=== PATIENT | male | born 1975 | race African-American/Black ===

== ENCOUNTER → 2019-05-30 10:59 | Outpatient (CLI) | payer OTHER, SELFPAY ==
--- NOTE | ~2019-05-30 | XR_ITS ---
XR chest 2V 05/30/2019 11:10 Indication: Nicotine dependence. Procedure: PA and lateral views of the chest Comparison: No prior studies for comparison. Findings: There is a masslike density in the left upper thorax. Heart size normal. Right lung clear. No pleural effusion, edema or pneumothorax. Impression: 1: Masslike density left upper thorax, suspicious for malignancy. Recommend correlation with CT chest . Reviewed, dictated and finalized at location A. ER MECHANIC Impression: 1: Masslike density left upper thorax, suspicious for malignancy. Recommend cor relation with CT chest.
== END ==
PROVIDERS: PCP Family Medicine; Visit Provider Family Medicine
DX: F17.200 Nicotine dependence, unspecified, uncomplicated (principal); R91.8 Other nonspecific abnormal finding of lung field
CPT/HCPCS: 71046

== ENCOUNTER 2019-06-30 08:57 | Outpatient (CLI) | payer OTHER, SELFPAY ==
[2019-06-26 14:09] VITALS: BMI 28.0
[2019-06-30] VITALS (11 sets, daily range): BP systolic 113–135; BP diastolic 66–97; PULSE 59–78; RESP 16–20; TEMP 36.6; O2SAT 97–100
--- NOTE | ~2019-06-30 | XR_ITS ---
EXAMINATION: XR chest 1V portable DATE: 06/30/2019 13:14 INDICATION: Left lung nodule status post percutaneous biopsy. TECHNIQUE: A single frontal view of the chest was obtained. COMPARISON: Chest single view at 11:59 AM FINDINGS: There is a nodule in left lung upper lobe. Left hilar lymphadenopathy is noted. No pleural effusion or pneumothorax. The heart size is normal. IMPRESSION: 1. Nodule in left lung upper lobe suspicious for primary bronchogenic carcinoma. 2. Left hilar lymphadenopathy suspicious for metastatic disease. Reviewed, dictated and finalized at location A. PALLIATIVE IMPRESSION: 1. Nodule in left lung upper lobe suspicious for primary bronchogenic carcinoma . 2. Left hilar lymphadenopathy suspicious for metastatic disease.
--- NOTE | ~2019-06-30 | CT_ITS ---
EXAMINATION: CT biopsy lung DATE: 06/30/2019 12:16 INDICATION: Left lung nodule. TECHNIQUE: The procedure including the risks, benefits, and alternatives and possibility of chest tub e placement were discussed with the patient. Risks discussed included infection, approximately 1/20 r isk of symptomatic hemorrhage beyond mild hemoptysis, approximately 1/3 risk of pneumothorax, approxi mately 1/10 risk of pneumothorax severe enough to warrant chest tube placement, and rarely . The patient understood the risks and agreed to proceed. The patient was placed supine with the left side elevated. The skin overlying the left lung was prepped and draped in sterile fashion. Anesthetic w as administered with 1% lidocaine subcutaneously. A 19 gauge outer needle was advanced under CT guid ance to the lesion of interest. A 20 gauge core biopsy needle was then used to obtain 3 core biopsy s pecimens. The needle was removed and the entry site was cleaned and dressed. The mA was adjusted acco rding to patient size. Iterative reconstruction technique was employed. The dose-length product was 1 52.82 mGy-cm. There were no immediate complications. FINDINGS: CT images demonstrate the outer needle tip adjacent to a 2.2 cm cavitary nodule in left warren g upper lobe. Left hilar lymphadenopathy is noted. IMPRESSION: 1. CT-guided core needle biopsy of a cavitary nodule in left lung upper lobe. 2. Left hilar lymphadenopathy. Reviewed, dictated and finalized at location A. NARY SEAMAN
--- NOTE | ~2019-06-30 | XR_ITS ---
EXAMINATION: XR chest 1V portable DATE: 06/30/2019 14:59 INDICATION: Left lung upper lobe nodule status post percutaneous biopsy. TECHNIQUE: A single frontal view of the chest was obtained. COMPARISON: Chest single view at 1:04 PM FINDINGS: There is a nodule in left lung upper lobe. There is left hilar lymphadenopathy. No pleural effusion or pneumothorax. The heart size is normal. IMPRESSION: 1. Nodule in left lung upper lobe suspicious for primary bronchogenic carcinoma. 2. Left hilar lymphadenopathy suspicious for metastatic disease. Reviewed, dictated and finalized at location A. ESSOR OF PUBLIC ADMINISTRATION IMPRESSION: 1. Nodule in left lung upper lobe suspicious for primary bronchogenic carcinoma . 2. Left hilar lymphadenopathy suspicious for metastatic disease.
--- NOTE | ~2019-06-30 | XR_ITS ---
EXAMINATION: XR chest 1V DATE: 06/30/2019 12:02 INDICATION: Left lung upper lobe nodule status post percutaneous biopsy. TECHNIQUE: A single frontal view of the chest was obtained. COMPARISON: Chest 2 views 05/30/2019 FINDINGS: There is a nodule in left lung upper lobe. There is left hilar lymphadenopathy. No pleural effusion or pneumothorax. The heart size is normal. IMPRESSION: 1. Nodule in left lung upper lobe suspicious for primary bronchogenic carcinoma. 2. Left hilar lymphadenopathy suspicious for metastatic disease. Reviewed, dictated and finalized at location A. GER OPERATOR HELPER IMPRESSION: 1. Nodule in left lung upper lobe suspicious for primary bronchogenic carcinoma . 2. Left hilar lymphadenopathy suspicious for metastatic disease.
[2019-06-30 10:47] LABS: Mean Platelet Volume 11.5 fl (7.4-10.4); Platelet Count Result 261 k/mm3 (150-375)
--- NOTE | 2019-06-30 13:36 | SUR.PHASEII ---
1308 PORTABLE CHEST XRAY TAKEN.
== END 2019-06-30 08:58 | disposition home or self-care (01) ==
PROVIDERS: PCP Family Medicine; Visit Provider Family Medicine
DX: R91.8 Other nonspecific abnormal finding of lung field (principal); K21.9 Gastro-esophageal reflux disease without esophagitis; G43.909 Migraine, unspecified, not intractable, without status migrainosus; Z79.899 Other long term (current) drug therapy; Z82.62 Family history of osteoporosis
CPT/HCPCS: 32405; 36415; 71045; 77012; 85049; 85610; 88305

== ENCOUNTER 2019-12-18 13:54 | Outpatient (CLI) | payer OTHER, SELFPAY ==
--- NOTE | ~2019-12-18 | MR_ITS ---
EXAMINATION: MRA brain wo con EXAM DATE: 12/18/2019 14:58 INDICATION: Diplopia. TECHNIQUE: 3-D [id number] MRA of the intracranial arteries was performed without contrast. There is no prior study for comparison. FINDINGS: There is normal flow related signal seen within the vertebral, basilar and internal carotid arteries. There is no proximal stenosis. There are no aneurysms identified. Both A1 and P1 segments are pat ent. Flow in the cerebral arteries is symmetric. IMPRESSION: Normal MRA brain exam. Reviewed, dictated and finalized at location A. IMPRESSION: Normal MRA brain exam.
== END 2019-12-18 13:55 | disposition home or self-care (01) ==
PROVIDERS: PCP Family Medicine; Visit Provider Family Medicine
DX: H53.2 Diplopia (principal)
CPT/HCPCS: 70544

== ENCOUNTER 2025-05-11 15:34 | Outpatient (CLI) | payer OTHER, SELFPAY ==
--- NOTE | ~2025-05-11 | XR_ITS ---
XR thoracic spine 3V Indication: Thoracic spine pain Comparison: None Findings: The vertebral heights are intact. No fracture or subluxation. The disc heights are intact. Soft tissues unremarkable Impression: No acute abnormality. Reviewed, dictated and finalized at location P. TRANSFER CLERK Impression: No acute abnormality.
--- OUTSIDE RECORDS SUMMARY | 2025-05-11 17:54 | XMS_ITS | Encounter Summary ---
Author Organization [facility] Address [address] [place] [id number] Phone Care Team Providers Care Capital Campaign Fundraiser Name Role Phone Will Wei APRN, CNP Primary Care Pr ovider Shanti Mittal MD Unavailable [phone] Reason for Visit * Reason Comments Medication Refill Encounter Details Date Type Department Care Team (Late st Contact Info) Description 03/17/2023 Refill [facility] - [facility] - [place] [address] [place] [id number] Will Wei APRN, CONSTRUCTION PROJECT MANAGER [address] [address] Medication Refill Social History Tobacco Use Types Packs/Day Years Used Date Smoking Tobacco: Every Day Cigarettes 0.5 39.3 Started: 01/17/1986 Smokeless Tobacco: Never Alcohol Use Standard Drinks/Week Comments No 0 (1 standard drink = 0.6 oz pur e alcohol) PHQ-2 Answer Date Recorded PHQ-2 Score 8 01/23/2019 Sex and Gender Information Value Date Recorded Sex Assigned at Not on file Legal Sex Male 10:59 PM CDT Gender Identity Not on file Sexual Orientation Not on file documented as of this encounter Miscellaneous Notes * Telephone Encounter - Mary Mcintyre RN - 03/19/2023 10:11 AM CDT Last Rx 10/06/22 - no fill hx on PDMP Medication failed the protocol, provider to review and approve the medication order if appropriate. Requested Prescriptions Pending Prescriptions Disp Refills ALPRAZolam (XANAX) 0.5 MG Tablet [Pharmacy Med Name: ALPRAZolam 0.5 MG Oral Tablet] 30 Tablet 0 Sig: TAKE 1 TABLET BY MOUTH THREE TIMES DAILY NEEDED FOR ANXIETY Not Delegated - Benzodiazepines Protocol Failed - 03/17/2023 10:44 AM Failed - This refill cannot be delegated Passed - Visit with relevant provider in past 12 months or upcoming 90 days Recent Visits Date Type Provider Dept 11/13/22 Office Visit Will Wei APRN, CNP [facility] 10/06/22 Office Visit Will Wei APRN, [facility] Showing recent visits within past 365 days and meeting all other requirements Future Appointments Date Type Provider Dept 04/09/23 Appointment Will Wei APRN, [facility] Showing future appointments within next 90 days and meeting all other requirements documented in this encounter Plan of Treatment Not on file documented as of this encounter Visit Diagnoses Diagnosis Depressive disorder Depressive disorder, not elsewhere classified documented in this encounter Additional Health Concerns Assessment Noted Time PHQ-9 Depression Total Score: 8 01/18/20 19 1:00 PM CDT documented as of this encounter Care Teams Capital Campaign Fundraiser Relationship Specialty Start Date End Date Will Wei APRN, [facility] [facility] [address] [place] [address] PCP - General Advanced Practice Nurse 10/06/22 Shanti Mittal MD [address] [facility] [address] [place] [address] Consulting Physician Urology 10/03/22 documented as of this encounter
--- OUTSIDE RECORDS SUMMARY | 2025-05-11 17:54 | XMS_ITS | Clinical Summary ---
Author Organization [facility] Address [address] [place] [address] Care Team Providers Care [employer] Professor Name Role Phone Cary Meng Unavailable Unavailable Abdulaziz Wooten MD Primary Care Provider [phone] Allergies Active Allergy Reactions Criticality Noted Date Comments Propoxyphene-Acetam inophen Anaphylaxis High 03/23/2020 Sulfa (Sulfonamide Antibiotics) Other (See comments) Low Skin irritation - like a burn Sulfamethoxazole-Tr imethoprim Rash Medium 12/26/2015 Medications phenazopyridin e (PYRIDIUM) 100 mg tabletIndicati ons:Dysuria Take 1 tablet (100 mg total) by mouth 3 (three) times a day as needed for urinary pain 20 tablet 0 Active Additional Information Patient not taking.Reported on 11/25/2024 oxybutynin (DITROPAN) 5 mg tabletIndicati ons:Urinary Urgency Take 1 tablet (5 mg total) by mouth 3 (three) times a day as needed (urinary urgency) 30 tablet 0 Active Additional Information Patient not taking.Reported on 11/25/2024 tamsulosin (FLOMAX) 0.4 mg extended release capsuleIndicat ions:Urolithia sis Take 1 capsule (0.4 mg total) by mouth daily for 21 days 21 capsule 0 Active Additional Information Patient not taking.Reported on 11/25/2024 HYDROcodone-ac etaminophen (NORCO) 5-325 mg per tabletIndicati ons:Pain Take 1 tablet by mouth every 6 (six) hours as needed for pain 10 tablet 0 Active Additional Information Patient not taking.Reported on 11/25/2024 ibuprofen (ADVIL,MOTRIN) 800 mg tablet Take 1 tablet (800 mg total) by mouth 3 (three) times a day 21 tablet 1 Active Additional Information Patient not taking.Reported on 11/25/2024 naloxone (NARCAN) 4 mg/actuation spray,non-aero jose armando Administer 1 spray into affected nostril(s) as needed for opioid reversal Call 911. Administer a single spray in one nostril. Repeat every 3 minutes as needed if no or minimal response. Collaborating physician Barbara Landa MD 2 each 1 1 Active Additional Information Patient not taking.Reported on 11/25/2024 chlorhexidine (PERIDEX) 0.12 % solution Swish 15 mL in mouth for 30 seconds then spit out twice a day after brushing teeth, 473 mL 1 Active Additional Information Patient not taking.Reported on 11/25/2024 citalopram (CeleXA) 20 mg tabletIndicati ons:Anxiety with Depression Take 1 tablet (20 mg total) by mouth daily 90 tablet 3 5 Active Active Problems Problem Noted Date Diagnosed Date Anxiety and depression 11/25/2024 Assessment & Plan (11/27/2024 11:41 AM CDT): Patient has a history of anxiety and depression. Was previously controlled on citalopram 20 mg. Patient stopped taking. Today PHQ-9 was 13 and scotty 7 was 13. We we will restart again. H/O multiple pulmonary nodules 11/25/2024 Assessment & Plan (11/27/2024 11:41 AM CDT): Previous CT PE showed 9 mm noncalcified nodule posterior left upper lobe. 4 mm ground-glass nodule medial aspect left upper lobe. 4 mm ground-glass subpleural nodule anterior aspect right middle lobe. 3 mm nodule right lower lobe. It is recommended a non-contrast chest CT at 3 to 6 months was to be repeated. We will repeat Opioid abuse 03/07/2021 Renal calculus, left 03/10/2020 Right renal stone 01/28/2020 Overview (01/28/2020): Added automatically from request for surgery [id number] Gastroesophageal reflux disease without esophagi tis 01/20/2020 Nausea and vomiting 01/20/2020 Renal calculus, right 01/19/2020 Overview (01/19/2020): Added automatically from request for surgery [id number] Chronic migraine without aura 07/13/2016 Overview (09/01/2016): Chronic migraine without aura Aneurysm of internal carotid artery 07/13/2016 Overview (09/01/2016): Aneurysm of internal carotid artery Migraine without aura and wi thout status migrainosus, not intractable 07/13/2016 Overview (02/24/2021): Overview: Chronic migraine without aura GERD (gastroesophageal reflux disease) Tobacco use disorder Resolved Problems Problem Noted Date Diagnosed Date Resolved Date Acute pyelonephritis 01/21/2020 025 Encounters Date Type Department Care Team Description 05/08/2025 [facility] Enrollment [facility] [address] [place], [place] [phone] Cary Meng 04/30/2025 Documentation [facility] [address] [place], [place] [phone] Cary Meng 04/28/2025 12:27 PM EHS MANAGER - 04/28/2025 5:01 PM EHS MANAGER Emergency [facility] Emergency Department [address] [place] [address] Barbara Landa MD Polysubstance abuse (Primary Dx) Discharge Disposition: Discharge to home or self care 04/28/2025 Documentation [facility] [address] [place], [place] [phone] Alberto David RRT from Last 3 Months Immunizations Immunization Administration Dates Next Due Pneumococcal Polysaccharide PPV23 01/17/2019 Td, Unspecified 12/26/2015 Tdap 12/26/2015 Surgical History Surgery Date Site/Laterality Comments CYSTOSCOPY W/ LASER LITHOTRIPSY LUMBAR FUSION URETERAL STENT PLACEMENT Medical History Medical History Date Comments Nephrolithiasis GERD (gastroesophageal reflux disease) Migraine Meningioma (HCC) Depression Arthritis Family History Medical History Relation Name Comments Diabetes Father Diabetes mellit us; Hypertension Father Hypertension; Cancer Mother Diabetes Mother Diabetes mellit us; Hypertension Mother Hypertension; Lung cancer Mother Cancer, lung; Diabetes Other 1 Diabetes mellit us; Hypertension Other 2 Hypertension; Relation Name Status Comments Father Alive Mother Other 1 Other 2 Social History Tobacco Use Types Packs/Day Years Used Date Smoking Tobacco: Every Day Cigarettes Smokeless Tobacco: Never Tobacco Cessation:Ready to Q uit: Not Asked; Counseling Given: Not Answered Alcohol Use Standard Drinks/Week Comments No 0 (1 standard drink = 0.6 oz pur e alcohol) AUDIT-C Answer Date Recorded Q1: How often do you have a drink containing alcohol? Never 11/25/2024 Q2: How many drinks containi ng alcohol do you have on a typical day when you are drinking? Patient does not drink Q3: How often do you have si x or more drinks on one occasion? Never 11/25/2024 PHQ-2 Answer Date Recorded PHQ-2 Total Score (If total score is 3 or more points, staff should administer the PHQ-9) 4 11/25/2024 PHQ-9 Answer Date Recorded PHQ-9 Total Score 13 11/25/2024 Personal Safety Answer Date Recorded Have you ever been in or are you currently in a harmful physical or emotional relationship or is someone making you feel afraid or unsafe? Denies 04/28/2025 Sex and Gender Information Value Date Recorded Sex Assigned at Not on file Legal Sex Male 4:22 AM EHS MANAGER Gender Identity Not on file Sexual Orientation Not on file Last Filed Vital Signs Vital Sign Reading Time Taken Comments Blood Pressure 146/100 04/28/2025 4:59 PM EHS MANAGER Pulse 69 04/28/2025 4:59 PM EHS MANAGER Temperature 37.1 C (98.7 F) 04/28/2025 12:40 PM EHS MANAGER Respiratory Rate 14 04/28/2025 4:59 PM EHS MANAGER Oxygen Saturation 96% 04/28/2025 4:59 PM EHS MANAGER Inhaled Oxygen Concentration - - Weight 72.6 kg (160 lb) 04/28/2025 12:40 PM EHS MANAGER Height 175.3 cm (5' 9) 04/28/2025 12:40 PM EHS MANAGER Body Mass Index 23.63 04/28/2025 12:40 PM EHS MANAGER Plan of Treatment Health Maintenance Due Date Last Done Comments Colon Cancer Screening-Colonoscopy 1974 Hepatitis C Screening 1974 Prostate Cancer Screening-PSA 1974 Hepatitis B Screening 02/21/1992 Regular Well Visit/Exam 18-64 02/21/1992 Pneumococcal vaccine <65 (2 of 2 - PCV) 01/18/2020 0 01/17/2019 Zoster Vaccine (1 of 2) 02/21/2024 Influenza Vaccine (#1) 2025 Depression Screening 11/25/2025 11/25/2024, 11/26/19 25 DTaP/Tdap/Td Vaccine (2 - Td or Tdap) 12/25/2025, 12/26/2015 Medical Devices Explanted Type Area Tar Pot Man Device Identifier Shelf Expiration Date Model / Serial / Lot Bard Inlay [place] 7fr X 26cm Implanted:Qty: 1 on 01/21/2020 by Hector Martinez MD at [facility] Explanted:Qty: 1 on 03/26/2020 by Raj Hernandez DO at [facility] Right: Ureter [employer] [id number] 08/28/2023 [id number] / / [id number] Ninjathat Jaison [id number] 6fr 26cm Large Inner Lumen Low Profile Bladder Donny Taper Tip Latex Free - [id number] Implanted:Qty: 1 on 03/26/2020 by Raj Hernandez DO at [facility] Explanted:Qty: 1 on 04/14/2020 by Raj Hernandez DO Right: Ureter [employer] Jaison [id number] 11/03/2021 [id number] / / [id number] Procedures Procedure Name Priority Date/Time Associated Diagnosis Comments CT KUB STONE WO CONTRAST ED Urgent/IP Urgent 04/28/2025 4:02 PM EHS MANAGER EGFR STAT 04/28/2025 3:17 PM EHS MANAGER DIFFERENTIAL AUTO STAT 04/28/2025 3:1 7 PM EHS MANAGER ETHANOL STAT 04/28/2025 3:17 PM EHS MANAGER COMPREHENSIVE METABOLIC PANEL STAT 04/28/2025 3:17 PM EHS MANAGER CBC WITH AUTO DIFFERENTIAL STAT 04/28/2025 3:17 PM EHS MANAGER DRUGS OF ABUSE SCREEN, URINE WITHOUT CONFIRMATION STAT 04/28/2025 1:08 PM EHS MANAGER URINALYSIS AND REFLEX TO MICROSCOPIC AND CULTURE STAT 04/28/2025 1:08 PM EHS MANAGER from Last 3 Months Results * CT KUB Stone WO Contrast (04/28/2025 4:02 PM EHS MANAGER) Anatomical Region Laterality Modality Abdomen N/A Computed Tomogra phy 04/28/2025 4:30 PM EHS MANAGER Impressions 04/28/2025 4:30 PM EHS MANAGER 1. Kidney stones are seen with no evidence of ureteral stone or hydronephrosis. No hydroureter. No bladder ossification. 2. No acute inflammatory change the abdomen or pelvis. No bowel obstruction or inflammatory change of bowel. 3. Again seen is rotation abnormality of bowel with small bowel seen on the right and colon seen on the left. Prominent stool seen of the colon without focal inflammatory change or evidence of obstruction. 4. Rounded cystic fluid collection is seen anterolateral to the upper pole of left kidney as was previously seen. This measures up water density. Mesenteric duplication cyst or lymphangioma favored. This was seen to be separate from the kidney on prior exams. Electronically signed by: Denis Dey M.D. Narrative 04/28/2025 4:30 PM EHS MANAGER EXAMINATION: CT KUB STONE WO CONTRAST HISTORY: Abdominal/flank pain, stone suspected. TECHNIQUE: CT abdomen and pelvis with contrast . Reconstructed coronal and sagittal MPR images reviewed. All images stored on PACS. Automated exposure control was used as a dose optimization technique for this examination. COMPARISON: Prior CT 08/29/2024 and 02/28/2022 FINDINGS: LOWER CHEST: The lung bases are clear. The heart is normal in size without pericardial effusion. Please see prior CT from 08/29/2024 as pulmonary nodules were noted in the chest for which follow-up CT was recommended in 3-6 months from that time. This could be obtained routinely. LIVER: The liver demonstrates a normal appearance given limitations without IV contrast. GALLBLADDER: No stones or inflammatory change. BILIARY: No intrahepatic or extrahepatic ductal dilatation SPLEEN: Normal length. No focal lesions. PANCREAS: No identified cystic or solid masses. No significant calcifications. No adjacent inflammation or peripancreatic fluid collections. Pancreatic duct is not dilated. ADRENALS: No discrete nodules. KIDNEYS/URINARY TRACT: The right kidney demonstrates nonobstructing stones as was previously seen. 3 mm stone in the mid to upper pole and 7 mm stone in the lower pole. There is no hydronephrosis or hydroureter. Small focus of hyperdensity favoring hemorrhagic cyst or other benign etiology with Hounsfield units of 90 posterior aspect interpolar region right kidney. The left kidney demonstrates a 2 mm stone of the lower pole. There is no left-sided hydronephrosis or hydroureter. Bladder appears normal There is a rounded fluid collection anterior to the lateral margin of the left kidney superiorly. This measures fluid density. This measures 5 cm. This was seen to be separate from the kidney and an older exam from October 19, 2019 when this measured 4 cm. This may reflect benign etiology such as lymphangioma. Possible mesenteric complication cyst. GI: There is rotation anomaly of bowel as was previously demonstrated. Small bowel loops are seen in the right abdomen and the colon is seen in the left abdomen. There is prominent stool seen throughout the colon with no evidence of obstruction or acute inflammatory change. Appendix is identified with no inflammatory change. The stomach and loops of small bowel are otherwise unremarkable with no obstruction or acute inflammatory change. PERITONEUM: No free intraperitoneal air or ascites. RETROPERITONEUM:No mass or adenopathy REPRODUCTIVE:Mild prominence of the prostate. VASCULATURE: No abdominal aortic aneurysm. MUSCULOSKELETAL: There is artifact as result of posterior fusion of L3, L4 and L5 with posterior rods and pedicle screws. Moderate spondylosis otherwise. No significant change in the interval. OTHER: No other acute findings. Procedure Note Denis Dey MD - 04/28/2025 EXAMINATION: CT KUB STONE WO CONTRAST HISTORY: Abdominal/flank pain, stone suspected. TECHNIQUE: CT abdomen and pelvis with contrast . Reconstructed coronal and sagittal MPR images reviewed. All images stored on PACS. Automated exposure control was used as a dose optimization technique for this examination. COMPARISON: Prior CT 08/29/2024 and 02/28/2022 FINDINGS: LOWER CHEST: The lung bases are clear. The heart is normal in size without pericardial effusion. Please see prior CT from 08/29/2024 as pulmonary nodules were noted in the chest for which follow-up CT was recommended in 3-6 months from that time. This could be obtained routinely. LIVER: The liver demonstrates a normal appearance given limitations without IV contrast. GALLBLADDER: No stones or inflammatory change. BILIARY: No intrahepatic or extrahepatic ductal dilatation SPLEEN: Normal length. No focal lesions. PANCREAS: No identified cystic or solid masses. No significant calcifications. No adjacent inflammation or peripancreatic fluid collections. Pancreatic duct is not dilated. ADRENALS: No discrete nodules. KIDNEYS/URINARY TRACT: The right kidney demonstrates nonobstructing stones as was previously seen. 3 mm stone in the mid to upper pole and 7 mm stone in the lower pole. There is no hydronephrosis or hydroureter. Small focus of hyperdensity favoring hemorrhagic cyst or other benign etiology with Hounsfield units of 90 posterior aspect interpolar region right kidney. The left kidney demonstrates a 2 mm stone of the lower pole. There is no left-sided hydronephrosis or hydroureter. Bladder appears normal There is a rounded fluid collection anterior to the lateral margin of the left kidney superiorly. This measures fluid density. This measures 5 cm. This was seen to be separate from the kidney and an older exam from October 19, 2019 when this measured 4 cm. This may reflect benign etiology such as lymphangioma. Possible mesenteric complication cyst. GI: There is rotation anomaly of bowel as was previously demonstrated. Small bowel loops are seen in the right abdomen and the colon is seen in the left abdomen. There is prominent stool seen throughout the colon with no evidence of obstruction or acute inflammatory change. Appendix is identified with no inflammatory change. The stomach and loops of small bowel are otherwise unremarkable with no obstruction or acute inflammatory change. PERITONEUM: No free intraperitoneal air or ascites. RETROPERITONEUM:No mass or adenopathy REPRODUCTIVE:Mild prominence of the prostate. VASCULATURE: No abdominal aortic aneurysm. MUSCULOSKELETAL: There is artifact as result of posterior fusion of L3, L4 and L5 with posterior rods and pedicle screws. Moderate spondylosis otherwise. No significant change in the interval. OTHER: No other acute findings. IMPRESSION: 1. Kidney stones are seen with no evidence of ureteral stone or hydronephrosis. No hydroureter. No bladder ossification. 2. No acute inflammatory change the abdomen or pelvis. No bowel obstruction or inflammatory change of bowel. 3. Again seen is rotation abnormality of bowel with small bowel seen on the right and colon seen on the left. Prominent stool seen of the colon without focal inflammatory change or evidence of obstruction. 4. Rounded cystic fluid collection is seen anterolateral to the upper pole of left kidney as was previously seen. This measures up water density. Mesenteric duplication cyst or lymphangioma favored. This was seen to be separate from the kidney on prior exams. Electronically signed by: Denis Dey M.D. Barbara Landa MD IMG CT PROCEDURES F inal Result * eGFR (04/28/2025 3:17 PM EHS MANAGER) eGFR 77 >=60 mL/min/1. 73 m2 Comment: Interpretive Data Reference Interval Normal >/= 90 mL/min/1.73m2 Mildly decreased* 60 - 89 mL/min/1.73m2 Mildly to moderately decreased 45 - 59 mL/min/1.73m2 Moderately to severely decreased 30 - 44 mL/min/1.73m2 Severely decreased 15 - 29 mL/min/1.73m2 Kidney Failure < 15 mL/min/1.73m2 *Relative to young adult level Estimated glomerular filtration rate is determined by the 2020 CKD-EPI equation recommended by the National Kidney Foundation (A Unifying Approach to GFR Estimation: Recommendations of the NKF-ASK Task Force on Reassessing the Inclusion of Race in Diagnosing Kidney Disease, JASN 202). The CKD-EPI equation should not be used for patients with unstable renal function and has not been validated in children and those over 70. Current interpretive data was last reviewed 2021. Blood 04/28/2025 3:17 PM EHS MANAGER 04/28/2025 3:27 PM EHS MANAGER Barbara Landa MD LAB BLOOD ORDERABLE S Final Result [facility]) 1 [facility] Department of [employer] [place] [address] * Differential, auto (04/28/2025 3:17 PM EHS MANAGER) Neutrophil abs 6.25 1.50 - 6.50 K/cumm Imm gran abs 0.02 0.00 - 0.10 K/cumm [facility] ([place]) Lymphocyte abs 2.60 0.80 - 3.30 K/cumm [facility] ([place]) Monocyte abs 0.62 0.20 - 0.80 K/cumm [facility] ([place]) Eosinophil abs 0.25 0.00 - 0.50 K/cumm [facility] ([place]) Basophil abs 0.04 0.00 - 0.10 K/cumm [facility] ([place]) Neutrophil pct 63.9 % [facility] ([place]) Comment: Interpretive Data Percent cell count reference ranges are not reported, since discordance with absolute values may lead to misinterpretation of CBC data. Current Interpretive Data was last revised on 2017. Imm gran pct 0.2 % [facility] ([place]) Comment: Interpretive Data Percent cell count reference ranges are not reported, since discordance with absolute values may lead to misinterpretation of CBC data. Current Interpretive Data was last revised on 2017. Lymphocyte pct 26.6 % [facility] ([place]) Comment: Interpretive Data Percent cell count reference ranges are not reported, since discordance with absolute values may lead to misinterpretation of CBC data. Current Interpretive Data was last revised on 2017. Monocyte pct 6.3 % [facility] ([place] Comment: Interpretive Data Percent cell count reference ranges are not reported, since discordance with absolute values may lead to misinterpretation of CBC data. Current Interpretive Data was last revised on 2017. Eosinophil pct 2.6 % [facility] ([place] Comment: Interpretive Data Percent cell count reference ranges are not reported, since discordance with absolute values may lead to misinterpretation of CBC data. Current Interpretive Data was last revised on 2017. Basophil pct 0.4 % [facility] ([place]) Comment: Interpretive Data Percent cell count reference ranges are not reported, since discordance with absolute values may lead to misinterpretation of CBC data. Current Interpretive Data was last revised on 2017. Blood 04/28/2025 3:17 PM EHS MANAGER 04/28/2025 3:27 PM EHS MANAGER us Barbara Landa MD LAB BLOOD ORDERABLE S Final Result Performing Organization Address City/[facility]/ZIP Co de Phone Number [facility] ([place]) 1 [facility] [employer] [place] [address] * CBC with auto differential (04/28/2025 3:17 PM EHS MANAGER) WBC 9.78 3.80 - 9.90 K/cumm Hgb 14.1 13.0 - 17.5 g/dL [facility] ([place]) Hct 42.7 38.9 - 50.3 % [facility] ([place]) Plt 289 150 - 400 K/cumm [facility] ([place]) MPV 9.9 9.1 - 12.3 fL [facility] ([place]) RBC 4.68 4.30 - 5.80 M/cumm [facility] ([place]) MCV 91.2 81.3 - 96.4 fL [facility] ([place]) MCH 30.1 27.1 - 33.3 pg [facility] ([place]) MCHC 33.0 32.3 - 35.7 g/dL [facility]) RDW CV 13.0 11.1 - 14.9 % [facility] RDW SD 43.0 35.7 - 48.1 fL [facility] ([place]) NRBC abs 0.00 0.00 - 0.01 K/cumm [facility] ([place]) Blood 04/28/2025 3:17 PM EHS MANAGER 04/28/2025 3:27 PM EHS MANAGER us Barbara Landa MD LAB BLOOD ORDERABLE S Final Result [facility] 1 [facility] [place] [address] * Ethanol (04/28/2025 3:17 PM EHS MANAGER) Ethanol <10 <=10 mg/dL Comment: Interpretive Data Legal limit of intoxication > or = 80 mg/dL Levels > or = 400 mg/dL are potentially TOXIC. Current interpretive data was last revised on 2018. Blood 04/28/2025 3:17 PM EHS MANAGER 04/28/2025 3:27 PM EHS MANAGER us Barbara Landa MD LAB BLOOD ORDERABLE S Final Result [facility] ([place]) 1 [facility] Department [place] [address] * (ABNORMAL) Comprehensive metabolic panel (04/28/2025 3:17 PM EHS MANAGER) Sodium 138 135 - 145 mmol/L Potassium, pl 4.6 3.3 - 4.9 mmol/L [facility]) Chloride 105 97 - 110 mmol/L [facility]) CO2 26 22 - 32 mmol/L [facility]) Anion gap 7 2 - 15 mmol/L [facility]) BUN 11 6 - 25 mg/dL [facility]) Creatinine 1.15 0.80 - 1.30 mg/dL [facility]) Glucose 100 70 - 199 mg/dL [facility] ([place]) Comment: Interpretive Data Fasting glucose >/= 126 mg/dl is diagnostic for diabetes. Fasting is defined as no caloric intake for at least 8 hours. Fasting glucose between 100 mg/dl to 125 mg/dl is diagnostic of prediabetes. In a patient with classic symptoms of hyperglycemia or hyperglycemic crisis, a random glucose >/= 200 mg/dl is diagnostic for diabetes. In the absence of unequivocal hyperglycemia, results should be confirmed by repeat testing. The classification and Diagnosis of Diabetes Diabetes Care 202; 46: S19-S40. Current interpretive data was last revised 2022. Calcium 10.6(H) 8.5 - 10.3 mg/dL [facility] ([place]) Bilirubin, total 0.2 0.1 - 1.2 mg/dL [facility] ([place]) Protein, pl 6.7 6.5 - 8.5 g/dL [facility] ([place]) Albumin 4.1 3.5 - 5.0 g/dL [facility] ([place]) Alk phos 96 40 - 130 Units/L [facility] ([place]) ALT 20 7 - 55 Units/L [facility] ([place]) AST 25 10 - 50 Units/L [facility] ([place]) Comment:Hemolysis present. R esults may be affected. Blood 04/28/2025 3:17 PM EHS MANAGER 04/28/2025 3:27 PM EHS MANAGER us Barbara Landa MD LAB BLOOD ORDERABLE S Final Result [facility] 1 [facility] Department [place] [address] * Urinalysis reflex to microscopic and culture Urine (04/28/2025 1:08 PM EHS MANAGER) Color, ur Yellow Yellow Clarity, ur Clear Clear [facility] ([place]) Specific gravity, ur 1.016 1.003 - 1.030 [facility] ([place]) pH, urine 7.5 [facility] ([place]) Comment: Interpretive Data U rine pH is affected by diet, medications, systemic acid-base disturbances, and renal tubular function. pH may affect urinary stone formation. For example, urine pH below 6.0 may help reduce the tendency for calcium phosphate stones and pH greater than 6.0 may reduce the tendency for uric acid stone formation. Source: [facility] [employer] Current Interpretive Data was last revised on 2017 Protein, ur ql Negative Negative [facility] ([place]) Glucose, ur ql Negative Negative [facility] ([place]) Ketones, ur Negative Negative [facility] ([place]) Bilirubin, ur Negative Negative [facility] ([place]) Blood, ur Negative Negative [facility] ([place]) Urobilinogen, ur <2.0 <2.0 mg/dL [facility] ([place]) Nitrite, ur Negative Negative [facility] ([place]) Leukocyte esterase, ur Negative Negative [facility] ([place]) UA reflex comment Reflex conditions for microscopic UA and culture not met. [facility] ([place]) Urine 04/28/2025 1:08 PM EHS MANAGER 04/28/2025 2:49 PM EHS MANAGER Barbara Landa MD LAB MICROBIOLOGY - GENERAL ORDERABLES Final Result [facility] ([place]) 1 [facility] [place] [address] * (ABNORMAL) Drugs of Abuse Screen, Urine without Confirmation (04/28/2025 1:08 PM EHS MANAGER) Amphetamine, ur Screen Positive, presumptive (A) CutOff 500ng/mL Comment: Interpretive Data - Amphetamines: Samples containing greater than 500 ng/mL d-methamphetamine or other cross-reacting amphetamine compounds are reported as positive. Amphetamine immunoassays are subject to significant false positive rates due to cross-reactivity of non-amphetamine drugs. Confirmatory testing required for definitive results. Current Interpretive Data was last reviewed 2022. Barbiturates, ur Not Detected CutOff 200ng/mL ANGELA MORIN (PALMA) Comment: Interpretive Data - Barbiturates: Samples containing greater than 200 ng/mL secobarbital or other cross-reacting barbiturate compounds are reported as positive. False positive and false negative results are possible. Confirmatory testing required for definitive results. Current Interpretive Data was last reviewed 2022. Benzodiazepines, ur Not Detected CutOff 100ng/mL ANGELA MORIN (PALMA) Comment: Interpretive Data - Benzodiazepines: Samples containing greater than 100 ng/mL nordiazepam or other cross-reacting compounds are reported as positive. False positive and false negative results are possible. Confirmatory testing required for definitive results. Current Interpretive Data was last reviewed 2022. Cannabinoids, ur Screen Positive, presumptive (A) CutOff 50 ng/mL ANGELA MORIN (PALMA) Comment: Interpretive Data - Cannabinoids: Samples containing greater than 50 ng/mL delta-9 THC -COOH or other cross- reacting compounds are reported as positive. False positive and false negative results are possible. Confirmatory testing required for definitive results. Current Interpretive Data was last reviewed 2022. Cocaine, ur Not Detected CutOff 150ng/mL [facility] ([place]) Comment: Interpretive Data - Cocaine: Samples containing greater than 150 ng/mL benzoylecgonine or other cross- reacting compounds are reported as positive. False positive and false negative results are possible. Confirmatory testing required for definitive results. Current Interpretive Data was last reviewed 2022. Fentanyl, Ur Not Detected CutOff 5 ng/mL [facility] ([place]) Comment: Interpretive Data - Fentanyl: Samples containing greater than 5 ng/mL norfentanyl, fentanyl, or other cross-reacting fentanyl compounds are reported as positive. False positive and false negative results are possible. Confirmatory testing required for definitive results. Current Interpretive Data was last reviewed 2023. Methadone, ur Not Detected CutOff 300ng/mL [facility] ([place]) Comment: Interpretive Data - Methadone: Samples containing greater than 300 ng/mL d,l-methadone or other cross-reacting compounds are reported as positive. False positive and false negative results are possible. Confirmatory testing required for definitive results. Current Interpretive Data was last reviewed 2022. Opiates, ur Not Detected CutOff 300ng/mL [facility] ([place]) Comment: Interpretive Data - Opiates: Samples containing greater than 300 ng/mL morphine or other cross-reacting compounds are reported as positive. False positive and false negative results are possible. Confirmatory testing required for definitive results. Current Interpretive Data was last reviewed 2022. Oxycodone, ur NOT DETECTED CutOff 100ng/mL [facility] ([place]) Comment: Interpretive Data - Oxycodone: Samples containing greater than 100 ng/mL oxycodone or other cross-reacting compounds are reported as positive. False positive and false negative results are possible. Confirmatory testing required for definitive results. Current Interpretive Data was last reviewed 2022. Phencyclidine, ur Not Detected CutOff 25 ng/mL [facility] ([place]) Comment: Interpretive Data - Phencyclidine: Samples containing greater than 25 ng/mL phencyclidine or other cross-reacting compounds are reported as positive. False positive and false negative results are possible. Confirmatory testing required for definitive results. Current Interpretive Data was last reviewed 2022. Urine Creatinine 101 mg/dL [facility] ([place]) Comment: Interpretive Data Urine Creatinine: < 10 mg/dL is extremely dilute = or > 10 but < 20 mg/dL is dilute = or > 20 mg/dL is normal Current Interpretive Data was last revised on 2017. Urine 04/28/2025 1:08 PM EHS MANAGER 04/28/2025 1:08 PM EHS MANAGER Narrative ANGELA MORIN (PALMA) - 04/28/2025 1:25 PM EHS MANAGER Drug of Abuse screening is performed by immunoassay for medical purposes only. This is not to be used for Pain Management purposes. us Hattie Carmichael MD LAB URINE ORDERABLES Cora riley Result ANGELA MORIN (PALMA) [address] [facility] [place] [address] from Last 3 Months Insurance [facility] [place] [address] [facility] Advance Directives For more information, please contact: [phone] * Full Code (Latest Code Status on File) Date Activated Date Inactivated Comments 03/26/2020 12:45 PM 03/27/2020 6:43 PM * Full Code Date Activated Date Inactivated Comments 01/21/2020 2:45 AM 01/23/2020 9:41 PM * Full Code Date Activated Date Inactivated Comments 01/20/2020 1:37 AM 01/20/2020 6:01 AM Care Teams Africana Studies Professor Relationship Specialty Start Date End Date Abdulaziz Wooten MD [address] [place] [address] [place] [address] PCP - General Family Medicine 11/25/24 Cary Meng Academic Coordinator Addiction Medicine 03/07/21
--- OUTSIDE RECORDS SUMMARY | 2025-05-11 17:54 | XMS_ITS | Encounter Summary ---
Author Organization [facility] Address [address] [place] [address] Phone Care Team Providers Care Carrot Harvester Name Role Phone Will Wei APRN, CNP Primary Care Pr ovider Shanti Mittal MD Unavailable [phone] Reason for Visit * Reason Comments Medication Refill Encounter Details Date Type Department Care Team (Late st Contact Info) Description 01/26/2024 Refill [facility] - Family Medicine - [place] #2 [place] [id number] Will Wei APRN, PUBLIC HEALTH TRAINING ASSISTANT #[address] [address] Medication Refill Social History Tobacco Use Types [...] Telephone Encounter - Mary Mcintyre RN - 01/29/2024 7:15 AM CDT Images from the original note were not included. Will Wei APRN, PUBLIC HEALTH TRAINING ASSISTANT to [facility] 01/21/24 9:04 AM Needs OV * Telephone Encounter - Sharmila Chaudhari RN - 01/26/2024 12:54 PM CDT Pt needs OV. Per RMA 01/22/24: NO ACTIVE PHONE NUMBER IN PATIENT CHART OR ADDRESS [employer] message was sent to patient, but remains unread. documented in this encounter Plan of Treatment Not on file documented as of this encounter Visit Diagnoses Diagnosis Depressive disorder Depressive disorder, not elsewhere classified documented in this encounter Additional Health Concerns Assessment Noted Time PHQ-9 Depression Total Score: 8 01/18/20 19 1:00 PM CDT documented as of this encounter Care Teams Carrot Harvester Relationship Specialty Start Date End Date Will Wei APRN, PUBLIC HEALTH TRAINING ASSISTANT #2 [facility] [address] [place] [address] PCP - General Advanced Practice Nurse 10/06/22 Shanti Mittal MD #2 [facility] [address] [place] [address] Consulting Physician Urology 10/03/22 documented as of this encounter
--- OUTSIDE RECORDS SUMMARY | 2025-05-11 17:54 | XMS_ITS | Encounter Summary ---
Author Organization [facility] Address [address] [place] [address] Phone Care Team Providers Care Yarn Twister Name Role Phone Will Wei APRN, CNP Primary Care Pr ovider Shanti Mittal MD Unavailable [phone] Reason for Visit * Reason Comments Medication Refill Encounter Details Date Type Department Care Team (Late st Contact Info) Description 12/26/2023 Refill [facility] - Family Medicine - [place] #2 [place] [phone] Will Wei APRN, ASSISTANT CENTER DIRECTOR #[address] [address] Medication Refill Social History Tobacco Use Types [...] encounter Miscellaneous Notes * Telephone Encounter - Elisabeth Schroeder CMA - 12/26/2023 1:27 PM CDT [employer] message was sent to patient; phone number is not listed in chart. * Telephone Encounter - Mary Mcintyre RN - 12/26/2023 11:50 AM CDT Needs OV with PCP * Telephone Encounter - Mary Mcintyre RN - 12/26/2023 11:50 AM CDT Medication failed the protocol, provider to review and approve the medication order if appropriate. Requested Prescriptions Pending Prescriptions Disp Refills citalopram (CeleXA) 20 MG Tablet [Pharmacy Med Name: Citalopram Hydrobromide 20 MG Oral Tablet] 30 Tablet 0 Sig: Take 1 tablet by mouth once daily Citalopram (Celexa) (6 Month Refill Only) Protocol Failed - 12/26/2023 10:22 AM Failed - Visit with relevant provider in past 6 months or upcoming 90 days Recent Visits No visits were found meeting these conditions. Showing recent visits within past 182 days and meeting all other requirements Future Appointments No visits were found meeting these conditions. Showing future appointments within next 90 days and meeting all other requirements Failed - Has an encounter in the past 6 months with a depression, anxiety, adjustment disorder, OCD, or PTSD visit diagnosis Passed - Citalopram dose is less than or equal to 40mg / day Passed - Patient has established therapy with Citalopram for at least 6 months documented in this encounter Plan of Treatment Not on file documented as of this encounter Visit Diagnoses Diagnosis Depressive disorder Depressive disorder, not elsewhere classified documented in this encounter Additional Health Concerns Assessment Noted Time PHQ-9 Depression Total Score: 8 01/18/20 19 1:00 PM CDT documented as of this encounter Care Teams Yarn Twister Relationship Specialty Start Date End Date Will Wei APRN, ASSISTANT CENTER DIRECTOR #[address] [address] PCP - General Advanced Practice Nurse 10/06/22 Shanti Mittal MD #2 [facility] [address] [place] [address] Consulting Physician Urology 10/03/22 documented as of this encounter"
--- OUTSIDE RECORDS SUMMARY | 2025-05-11 17:54 | XMS_ITS | Encounter Summary ---
Author Organization [facility] Address [address] [place] [address] Phone Care Team Providers Care Pencil Inspector Name Role Phone Will Wei APRN, CNP Primary Care Pr ovider Shanti Mittal MD Unavailable [phone] Reason for Visit * Reason Comments Medication Refill Encounter Details Date Type Department Care Team (Late st Contact Info) Description 06/23/2023 Refill [facility] - Family Medicine - [place] #2 [place] [phone] Will Wei APRN, [employer] #[address] [address] Medication Refill Social History Tobacco Use Types [...] Telephone Encounter - Mary Mcintyre RN - 06/25/2023 9:32 AM CST Medication failed the protocol, provider to review and approve the medication order if appropriate. Requested Prescriptions Pending Prescriptions Disp Refills citalopram (CeleXA) 20 MG Tablet [Pharmacy Med Name: Citalopram Hydrobromide 20 MG Oral Tablet] 90 Tablet 0 Sig: Take 1 tablet by mouth once daily Citalopram (Celexa) (6 Month Refill Only) Protocol Failed - 06/23/2023 3:38 PM Failed - Visit with relevant provider in [...] with Citalopram for at least 6 months CTOR CHEMISTRY documented in this encounter Plan of Treatment Not on file documented as of this encounter Visit Diagnoses Diagnosis Depressive disorder Depressive disorder, not elsewhere classified documented in this encounter Additional Health Concerns Assessment Noted Time PHQ-9 Depression Total Score: 8 01/18/20 19 1:00 PM CDT documented as of this encounter Care Teams Pencil Inspector Relationship Specialty Start Date End Date Will Wei APRN, CNP #2 [facility] [address] [place] [address] PCP - General Advanced Practice Nurse 10/06/22 Shanti Mittal MD #[address] [facility] [address] [place] [address] Consulting Physician Urology 10/03/22 documented as of this encounter
--- OUTSIDE RECORDS SUMMARY | 2025-05-11 17:54 | XMS_ITS | Clinical Summary ---
Author Organization [facility] Address [address] [place] [address] Care Team Providers Care Liner Checker Name Role Phone Unavailable Primary Care Provider Unavailabl e Source Comments [facility],non-owned Affiliates and Associated Physician Practices is amultiple site organization consisting of ambulatory clinics and hospital sitesin [place], [place], [place] and [place]. This disclosure is being madepursuant to the Care Everywhere program and may not contain all information available regarding this patient. Last updated 18.[facility] Allergies Active Allergy Reactions Criticality Noted Date Comments Sulfamethoxazole W-Trimethoprim Topical High 03/02/2022 Propoxyphene N-Apap Angioedema High 03/02/2022 Sulfa Antibiotics Unknown Low 06/26/2022 Skin irritation - like a burn Medications * Be aware that medications may not be up to date on this document. Alwaysverify current medications with the patient. citalopram (CeleXA) 40 MG tablet Take 1 (one) tablet by mouth once daily 2 Active Docusate Sodium (DSS) 100 MG Take 100 mg by mouth 2 times daily 2 Active naloxone HCl (Narcan) 4 MG/0.1ML nasal spray Gr[place] 1 (one) spray into the nose as needed 2 Active phenazopyridine (Pyridium) 100 MG tablet Take 1 (one) tablet by mouth 2 times daily 10 tablet 3 Active solifenacin (Vesicare) 10 MG tablet Take 1 (one) tablet by mouth once daily 30 tablet 2 3 Active Additional Information Patient taking differently:10 mg OralEVERY MORNING, Reported on 06/29/2022 oxyCODONE-aceta minophen (Percocet) 7.5-325 MG tabletIndicatio ns:Flank pain Take 1 (one) tablet by mouth every 6 hours as needed for Pain 0 3 Active ketorolac (Toradol) 10 MG tablet Take 1 (one) tablet by mouth every 6 hours as needed for Pain 25 tablet 3 Active HYDROcodone-artie taminophen ([place]) 5-325 MG tabletIndicatio ns:Flank pain Take 1 (one) tablet by mouth every 8 hours as needed for Pain 15 tablet 3 Active Active Problems Problem Noted Date Diagnosed Date Nephrolithiasis 06/26/2022 Flank pain 06/26/2022 Ureteral stent retained 06/26/2022 Hydronephrosis with urinary obstruction due to renal calculus 02/28/2022 Resolved Problems Problem Noted Date Diagnosed Date Resolved Date Hypercalcemia 06/26/2022 06/28/2022 Acute cystitis with hematuria 06/26/2022 06/28/2022 Social History Tobacco Use Types Packs/Day Years Used Date Smoking Tobacco: Every Day Cigarettes 1 43 Started: 1982 Smokeless Tobacco: Never Tobacco Cessation:Ready to Q uit: Not Asked; Counseling Given: Not Answered Alcohol Use Standard Drinks/Week Comments Yes 0 (1 standard drink = 0.6 oz pur e alcohol) AUDIT-C Answer Date Recorded Q1: How often do you have a drink containing alcohol? Never 07/05/2022 Q2: How many drinks containi ng alcohol do you have on a typical day when you are drinking? Patient does not drink 3 Q3: How often do you have si x or more drinks on one occasion? Never 07/05/2022 Overall Financial Resource Strain (CARDIA) Answe r Date Recorded How hard is it for you to pa y for the very basics like food, housing, medical care, and heating? Somewhat hard 06/27/2022 [facility] - Occupational Stress Questionnaire Answer Date Recorded Do you feel stress - tense, restless, nervous, or anxious, or unable to sleep at night because your mind is troubled all the time - these days? To some extent 06/27/2022 Hunger Vital Sign Answer Date Recorded Within the past 12 months, y ou worried that your food would run out before you got the money to buy more. Sometimes true Within the past 12 months, t he food you bought just didn't last and you didn't have money to get more. Sometimes true PRAPARE - Transportation Answer Date Re corded In the past 12 months, has l ack of transportation kept you from medical appointments or from getting medications? No 05/30 In the past 12 months, has l ack of transportation kept you from meetings, work, or from getting things needed for daily living? No 06/27/2022 Housing Stability Vital Sign Answer Raheem e Recorded In the last 12 months, was t here a time when you were not able to pay the mortgage or rent on time? No 06/27/2022 In the last 12 months, how many places have you lived? 2 06/27/2022 Unstable Housing in the Last Year Not on file 06/27/2022 Sex and Gender Information Value Date Recorded Sex Assigned at Not on file Legal Sex Male 6:34 AM ALCOHOL STILL OPERATOR Gender Identity Not on file Sexual Orientation Not on file Last Filed Vital Signs Vital Sign Reading Time Taken Comments Blood Pressure 142/94 07/06/2022 12:00 AM ALCOHOL STILL OPERATOR Pulse 64 07/05/2022 8:46 PM ALCOHOL STILL OPERATOR Temperature 37.1 C (98.8 F) 07/05/2022 8:46 PM ALCOHOL STILL OPERATOR Respiratory Rate 22 07/05/2022 8:46 PM ALCOHOL STILL OPERATOR Oxygen Saturation 96% 07/06/2022 12:00 AM ALCOHOL STILL OPERATOR Inhaled Oxygen Concentration - - Weight 74.8 kg (165 lb) 07/05/2022 8:46 PM ALCOHOL STILL OPERATOR Height 175.3 cm (5' 9) 07/05/2022 8:46 PM ALCOHOL STILL OPERATOR Body Mass Index 24.37 07/05/2022 8:46 PM ALCOHOL STILL OPERATOR Plan of Treatment Health Maintenance Due Date Last Done Comments COLOGUARD (AGES 45-75) - COL ON CA SCREENING 1974 COLON MONITORING 1974 COLONOSCOPY - COLON CA SCREENING 1974 CT COLONOGRAPHY - COLON CA SCREENING 1974 Colorectal Cancer Screening 1974 FIT - COLON CA SCREENING 1974 FLEX SIG - COLON CA SCREENING 1974 LIPID TESTING 1974 HIV SCREENING 1989 HEPATITIS C SCREENING 02/16/1992 DTAP/TDAP/TD VACCINES (1 - Tdap) 1993 HEPATITIS B VACCINE (1 of 3 - 19+ 3-dose series) 1993 PNEUMOCOCCAL VACCINE 50+ (1 of 2 - PCV) 1993 ZOSTER VACCINE (1 of 2) 02/21/2024 DEPRESSION SCREENING 05/28/2024 COVID-19 VACCINE (1 - 2024-2 6 season) 2025 INFLUENZA VACCINE (#1) 2025 HIB VACCINE Aged Out No longer eligi ble based on patient's age to complete this topic HPV VACCINE Aged Out No longer eligi ble based on patient's age to complete this topic MENINGOCOCCAL (Group B) VACC INE SHARED DECISION-MAKING Aged Out No longer eligibl e based on patient's age to complete this topic MENINGOCOCCAL GROUPS A/C/Y/W VACCINE Aged Out No longer eligible b ased on patient's age to complete this topic Medical Devices Implanted Type Area Neuropsychology Service Director Device Identifier Shelf Expiration Date Model / Serial / Lot Stent Tria Sft 6x30 Implanted:Qty: 1 on 03/02/2022 by John Mathews MD at [facility] Right: [employer] [place] 10/18/2024 [id number] / / [id number] Stent Uret 7fr 28cm Pgtl Crv Tpr Tip - [id number] Implanted:Qty: 1 on 07/03/2022 by Cale Trejo MD at [facility] Left: [employer] 12/03/2022 [id number] / [id number] / [id number] [place] [address] [place] [address] MEDICAID - [place] Advance Directives * Full Code (Latest Code Status on File) Date Activated Date Inactivated Comments 06/26/2022 10:21 PM 06/28/2022 4:13 PM * Full Code Date Activated Date Inactivated Comments 02/28/2022 9:54 PM 03/03/2022 1:17 PM
--- OUTSIDE RECORDS SUMMARY | 2025-05-11 17:54 | XMS_ITS | Clinical Summary ---
Author Organization [facility] Address [address] [place] [address] Phone Care Team Providers Care Senior Treasury Analyst Name Role Phone Will Wei APRN, ROBERTO Primary Care Pr ovider Shanti Mittal MD Unavailable [phone] Allergies Active Allergy Reactions Criticality Noted Date Comments Sulfamethoxazole-Trimethop rim Rash 12/26/2015 Propoxyphene Other (see Comments) 12/26/2015 Facial edema Trimethoprim Vomiting 01/17/2019 Medications tamsulosin (FLOMAX) 0.4 MG CapsuleIndicatio ns:Nephrolithias is Take 1 Capsule by mouth every morning. 90 Capsule 3 Active oxyCODONE-acetam inophen (Percocet) 5-325 MG TabletIndication s:Kidney stone on left side Take 1 Tablet by mouth every 6 hours as needed for Severe pain. 28 Tablet 3 Active docusate sodium (Colace) 100 MG Capsule Take 1 Capsule by mouth 2 times daily. 60 Capsule 3 Active oxybutynin (DITROPAN-XL) 10 MG TABLET SR 24 HR Take 1 Tablet by mouth daily. 30 Tablet 3 Active naloxone HCl (Narcan) 4 MG/0.1ML Liquid 3 Active omeprazole (PriLOSEC) 20 MG CAPSULE DELAYED RELEASEIndicatio ns:Epigastric pain Take 1 Capsule by mouth daily. Take 30 minutes before the largest meal of the day. 30 Capsule 5 3 Active ALPRAZolam (XANAX) 0.5 MG TabletIndication s:Depressive disorder TAKE 1 TABLET BY MOUTH THREE TIMES DAILY NEEDED FOR ANXIETY 30 Tablet 3 Active citalopram (CeleXA) 20 MG TabletIndication s:Depressive disorder Take 1 tablet by mouth once daily 90 Tablet 1 4 Active HYDROcodone-acet aminophen (NORCO) 5-325 MG TabletIndication s:Pain, dental Take 1-2 Tablets by mouth every 4 hours as needed for Moderate or more severe pain. 12 Tablet 4 Active ondansetron (ZOFRAN-ODT) 4 MG TABLET DISPERSIBLE Take 1 Tablet by mouth every 8 hours as needed for Nausea - 1st line. 10 Tablet 4 Active HYDROcodone-acet aminophen (NORCO) 5-325 MG TabletIndication s:Kidney stone on left side Take 1-2 Tablets by mouth every 4 hours as needed for Moderate or more severe pain. 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 01/17/2019 Overview (01/17/2019): Overview: Aneurysm of internal carotid artery Immunizations Immunization Administration Dates Next Due Pneumococcal Vaccine Adult - 23 Valent 9 TD VACCINE 12/26/2015 TDAP Vaccine 12/26/2015 Td, Unspecified Formulation 12/26/2015 Family History Medical History Relation Name Comments No Known Problems Father Diabetes Maternal Grandmother Diabetes Mother Lung Cancer Mother Diabetes Sister Heart Attack Sister Relation Name Status Comments Father Alive Maternal Grandmother Alive Mother Sister Alive Social History Tobacco Use Types Packs/Day Years Used Date Smoking Tobacco: Every Day Cigarettes 0.5 39.3 Started: 01/17/1986 Smokeless Tobacco: Never Tobacco Cessation:Ready to Q [...] Sign Reading Time Taken Comments Blood Pressure 150/75 05/15/2024 7:00 PM SUBSTANCE ABUSE SPECIALIST Pulse 99 05/15/2024 5:35 PM SUBSTANCE ABUSE SPECIALIST Temperature 37.1 C (98.7 F) 05/15/2024 5:35 PM SUBSTANCE ABUSE SPECIALIST Respiratory Rate 18 05/15/2024 5:35 PM SUBSTANCE ABUSE SPECIALIST Oxygen Saturation 98% 05/15/2024 5:35 PM SUBSTANCE ABUSE SPECIALIST Inhaled Oxygen Concentration - - Weight 81.6 kg (180 lb) 05/15/2024 5:35 PM SUBSTANCE ABUSE SPECIALIST Height 175.3 cm (5' 9) 05/15/2024 5:35 PM SUBSTANCE ABUSE SPECIALIST Body Mass Index 26.58 05/15/2024 5:35 PM SUBSTANCE ABUSE SPECIALIST Plan of Treatment Health Maintenance Due Date Last Done Comments Hepatitis C Virus (HCV) Screening 1974 Hepatitis B Immunization (1 of 3 - 19+ 3-dose series) 1993 Cologuard 2019 Colonoscopy 2019 Colorectal Cancer Screening 01/02/2020 Immunochemical Fecal Occult Blood 01/02/2020 01/01/2019 Pneumococcal Immunization (5 0+ years) (2 of 2 - PCV) 01/18/2020 01/17/2019 Zoster Immunization (1 of 2) 02/21/2024 Influenza Immunization (#1) 2025 SARS-COV-2 Immunization ( - season) 2025 Td Immunization Every 10 Yea rs (Adults With 1 Tdap) 12/25/2025 12/26/2015, 12/26/2015, 12/26/2015 Respiratory Syncytial Virus (RSV) Immunization (Adult) (1 - 1-dose 75+ series) 2049 Pneumococcal Immunization Combined Discontinued 01/17/2019 Human Papillomavirus (HPV) Immunization (No Doses Required) Completed Meningococcal Immunization (ACWY) Aged Out No longer eligible based on patient's age to complete this topic Rotavirus Immunization Aged Out No lo nger eligible based on patient's age to complete this topic Medical Devices Implanted Type Area Biology Lecturer Device Identifier Shelf Expiration Date Model / Serial / Lot Stent Ureteral 6fr 2.1fr 28cm 2 Pigtail Curve 2 Durometer Taper Tip Loprfl Graduated Polaris Ultra - [id number] Implanted:Qty : 1 on 10/24/2022 by Shanti Mittal MD at [facility] IMPLANT Right: Ureter [employer] 08/03/2025 [id number] 0 / [id number] 0 / [id number] Description:STRINGS OFF Stent Ureteral 6fr 2.1fr 28cm 2 Pigtail Curve 2 Durometer Taper Tip Loprfl Graduated Polaris Ultra - [id number] Implanted:Qty : 1 on 10/24/2022 by Shanti Mittal MD at [facility] IMPLANT Left: Ureter [employer] 08/03/2025 [id number] 0 / [id number] 0 / [id number] Description:STRINGS OFF Explanted Type Area Biology Lecturer Device Identifier Shelf Expiration Date Model / Serial / Lot Stent Ureteral 6fr 2.1fr 28cm 2 Pigtail Curve 2 Durometer Taper Tip Loprfl Graduated Polaris Ultra - [id number] Implanted:Qty : 1 on 04/12/2022 by Shanti Mittal MD at [facility] Explanted:Qty : 1 on 10/24/2022 at [facility] IMPLANT Left: Ureter [employer] 10/18/2024 [id number] 0 / [id number] 0 / [id number] Description:STRINGS OFF Stent removed 10.24. per and exchange inserted Procedures Procedure Name Priority Date/Time Associated Diagnosis Comments STOOL, OCCULT BLOOD, DIAGNOSTIC, VIA GUAIAC STAT 01/01/2019 4:30 PM CDT from Last 3 Months or Most Recently Relevant to Health Maintenance Results * (ABNORMAL) Stool Occult Blood - Diagnostic (01/01/2019 4:30 PM CDT) OCCULT BLOOD DIAG Positive(A ) Negative 01/01/2019 4:49 PM [address] [facility] Stool specimen (specimen) Non-Phlebotomy Collection / Unknown 01/01/2019 4:30 PM CDT 01/01/2019 4:42 PM CDT Esteban Ahmadi PAC BODY FLUIDS & STOOLS ORDERABLES Final Result [facility] [address] [place] [address] from Last 3 Months or Most Recently Relevant to Health Maintenance Advance Directives * Full Code (Latest Code Status on File) Date Activated Date Inactivated Comments 04/12/2022 4:40 AM 04/13/2022 7:41 PM CPR-Full T reatment: FULL ARREST: Attempt Resuscitation/CPR wit intubation and mechanical ventilation. PRE-ARREST: Use entire range of life support measures to stabilize the patient. Care Teams Senior Treasury Analyst Relationship Specialty Start Date End Date Will Wei APRN, KENNEL OPERATOR #2 [facility] [address] [place] [address] PCP - General Advanced Practice Nurse 10/06/22 Shanti Mittal MD #2 [facility] [address] [place] [address] Consulting Physician Urology 10/03/22
== END 2025-05-11 15:35 | disposition home or self-care (01) ==
LOC: ANHIMG 15:39
PROVIDERS: PCP Family Medicine; Visit Provider Registered Nurse
DX: M51.34 Other intervertebral disc degeneration, thoracic region (principal)
CPT/HCPCS: 72072

== ENCOUNTER 2025-05-12 09:28 | Emergency (ER) | payer OTHER, SELFPAY ==
--- NOTE | ~2025-05-12 | CT_ITS ---
EXAM/PROCEDURE: CT thoracic spine wo con HISTORY: back pain COMPARISON: None available. TECHNIQUE: Thoracic spine CT performed without contrast FINDINGS: Mild to moderately advanced degenerative disc changes throughout the mid and lower thoracic spine with slight kyphotic angulation of the mid thoracic spine. No gross acute or aggressive bony or soft tissue process. No large disc herniation or severe spinal canal stenosis. 5 mm nonobstructing mid pole right kidney stone incidentally noted. IMPRESSION: Mild to moderate degenerative disc changes throughout the mid and lower thoracic spine with no acute or aggressive bony or soft tissue process seen. Consider correlation with thoracic spine MRI for persisting back pain refractory to conservative therapy. Reviewed, dictated and finalized at location A. RMATION CLERK BROKERAGE IMPRESSION: Mild to moderate degenerative disc changes throughout the mid and lower thoracic spine with no acute or aggressive bony or soft tissue process se en. Consider correlation with thoracic spine MRI for persisting back pain refra ctory to conservative therapy.
[2025-05-12 09:35] VITALS: BP 162/99; PULSE 81; RESP 18; TEMP 36.6; O2SAT 98
--- NOTE | 2025-05-12 10:29 | ED.BACK ---
HPI - Back Pain/Injury General Chief Complaint: Back Pain/Injury Stated Complaint: tooth abscess & back pain on antibiotics Time Seen by Provider: 05/12/25 09:44 Source: patient Mode of arrival: ambulatory Limitations: no limitations History of Present Illness HPI Narrative: This is a 50-year-old male that presents to the emergency department for toothache and midback pain. Reports he has had a toothache over the last several weeks. He has been on Augmentin with little relief. He also reports he has had mid back pain. Worse with movement. No recent injury or trauma. Denies numbness or weakness. Related Data Home Medications ?Medication ?Instructions ?Recorded ?Confirmed ?Last Taken ?Type amitriptyline 50 mg tablet 50 mg PO ONCE 12/08/19 12/30/19 Unknown History diphenhydramine HCl 25 mg capsule 25 mg PO TID PRN 12/08/19 12/30/19 Unknown History (Allergy Relief (diphenhydramine)) metoclopramide HCl 10 mg tablet 10 mg PO BID PRN 12/08/19 12/30/19 Unknown History (Reglan) topiramate 50 mg tablet 50 mg PO DAILY 12/08/19 12/30/19 Unknown History Allergies Allergy/AdvReac Type Severity Reaction Status Date / Time propoxyphene (From Allergy Severe Swelling Verified 05/12/25 09:29 Darvocet-N) of Lip/Tongue/Throat sulfamethoxazole (From Allergy Unknown burn casey Verified 05/12/25 09:29 Bactrim) on skin trimethoprim (From Bactrim) Allergy Unknown burn casey Verified 05/12/25 09:29 on skin Review of Systems Review of Systems: All systems reviewed & are unremarkable except as noted in HPI and below PMFSH Past Medical History Medical History (Updated 05/12/25 @ 11:19 by Tran Shanks PA-C) Kidney stones Hypertension Hypersomnia Lung mass Shortness of Breath Tobacco abuse Chest mass GERD (gastroesophageal reflux disease) Anxiety Migraines Depression Surgical History Surgical History History of stent insertion of renal artery History of back surgery Family History Family History Mother Diabetes mellitus Lung cancer Grandparent Diabetes mellitus Social History Social History Smoking packs per day: 1 Smoking cigarettes per day: 20.0 Years smoked: 30 Smoking pack-years: 30.00 Smoking status: Current every day smoker Tobacco type: cigarettes Alcohol intake: never Exam Narrative: GENERAL: Well-appearing, well-nourished, and in no acute distress. HEAD: Normocephalic, atraumatic. EYES: EOMI. ENT: Poor dentition. Tooth # 17 is decaying, no surrounding edema or fluctuance to suggest abscess CHEST: Clear to auscultation. No respiratory distress. No wheezes rales or rhonchi HEART: Regular rate and rhythm. No murmur heard. Normal peripheral pulses. EXTREMITIES: Normal range of motion. No edema. Strength equal in bilateral upper and lower extremities (5/5) SKIN: Warm, dry. Psoriasis patches noted on the back NEURO: No focal deficits. Alert and oriented x3. PSYCH: Normal mood and affect Course Vital Signs Vital signs: Vital Signs Temperature 97.8 F 05/12/25 09:35 Pulse Rate 81 05/12/25 09:35 Respiratory Rate 18 05/12/25 09:35 Blood Pressure 162/99 H 05/12/25 09:35 Pulse Oximetry 98 05/12/25 09:35 Temperature 97.6 F 05/12/25 11:34 Pulse Rate 74 05/12/25 11:34 Respiratory Rate 16 05/12/25 11:34 Blood Pressure 149/92 H 05/12/25 11:34 Pulse Oximetry 98 05/12/25 11:34 [facility] Narrative Medical decision making narrative: Patient presents to the emergency department with 2 complaints. Reporting toothache as well as mid back pain. Patient is afebrile and nontoxic appearing. He is neurologically intact. CT thoracic spine shows [id number] degenerative disc disease. No obvious abscess on examination of his tooth. Will change his Augmentin to clindamycin and was instructed on the importance of seeing a dentist. For his back he was instructed on anti-inflammatories, Tylenol, muscle relaxer, lidocaine patches and follow-up with PCP Differential Diagnosis Differential Diagnosis: Degenerative disc disease, radiculopathy, muscle strain, muscle spasm, toothache, dental abscess Imaging Data Radiologist's impression: ITS Impressions Thoracic Spine CT 05/12/25 10:39 IMPRESSION: Mild to moderate degenerative disc changes throughout the mid and lower thoracic spine with no acute or aggressive bony or soft tissue process seen. Consider correlation with thoracic spine MRI for persisting back pain refractory to conservative therapy. Critical Care Time Critical Care Time Critical Care Time: No Discharge Plan Discharge Clinical Impression: Toothache Degenerative disc disease Qualifiers: Spinal region: thoracic Qualified Code(s): M51.34 - Other intervertebral disc degeneration, thoracic region Patient Disposition: Home Condition: Stable Instructions: Antibiotic Form, Toothache (ED), Degenerative Disc Disease (ED) Additional Instructions: Return to the ER if you experience fever, redness and swelling around your tooth, weakness, numbness, bowel/bladder incontinence, or any other symptoms that are concerning to you Rest, use ice/heat, take anti-inflammatories (Aleve, Ibuprofen, Naproxen, etc) or Tylenol as needed for pain as well as muscle relaxer (Flexeril) as needed for pain. Muscle relaxers can make you drowsy, do not drive if you take this. Lidocaine patches as needed. Stop Augmentin. Lets try switching your antibiotic to clindamycin to see if this helps your toothache Follow up with your primary care doctor and a dentist Patient Language: Congolese Prescriptions: New clindamycin HCl [Cleocin HCl] 300 mg capsule 300 mg PO Q6H 7 Days Qty: 28 0RF cyclobenzaprine 10 mg tablet 10 mg PO TID PRN (Reason: muscle spasm) Qty: 10 0RF lidocaine 5 % adhesive patch,medicated 1 patch topical DAILY Qty: 15 0RF Rx Instructions: leave on most painful area for up to 12 hrs No Action ergocalciferol (vitamin D2) 1,250 mcg (50,000 unit) capsule 50,000 unit PO WEEKLY Qty: 20 1RF Rx Instructions: take 1 every week for 8 weeks then switch to 1 monthly thereafter sumatriptan succinate 100 mg tablet 100 mg PO ONCE PRN (Reason: Migraine Headache) Qty: 9 1RF amitriptyline 50 mg tablet 50 mg PO ONCE diphenhydramine HCl [Allergy Relief(diphenhydramin)] 25 mg capsule 25 mg PO TID PRN metoclopramide HCl [Reglan] 10 mg tablet 10 mg PO BID PRN topiramate 50 mg tablet 50 mg PO DAILY naproxen sodium [Flanax (naproxen)] 220 mg tablet 220 mg PO Q12H Qty: 60 0RF propranolol 20 mg tablet 20 mg PO Q12H Qty: 30 5RF famotidine 20 mg tablet 40 mg PO BID Qty: 60 3RF citalopram 20 mg tablet 20 mg PO DAILY Qty: 30 0RF Follow-up/Referrals: Paul Saab MD [Primary Care Provider, Family Practice]
[2025-05-12] MEDS: ACETAMINOPHEN 500 MG TABLET 1000 MG PO (10:36)
--- OUTSIDE RECORDS SUMMARY | 2025-05-12 10:36 | XMS_ITS | Clinical Summary ---
Author Organization [facility] Address [address] [place] [address] Care Team Providers Care Furnace And Wash Equipment Operator Name Role Phone Unavailable Primary Care Provider Unavailabl e Source Comments [facility],non-owned Affiliates and Associated Physician Practices is amultiple site organization consisting of ambulatory clinics and hospital sitesin [place], [place], [place] and [place]. This disclosure is being madepursuant to the Care Everywhere program and may not contain all information available regarding this patient. Last updated 18.[facility] [employer]rom[employer] Allergies Active Allergy Reactions Criticality Noted Date [...] naloxone HCl (Narcan) 4 MG/0.1ML nasal spray [place] 1 (one) spray into the nose as [...] Pain 25 tablet 3 Active HYDROcodone-artie taminophen ([place]) 5-325 MG tabletIndicatio ns:Flank pain Take 1 [...] medical care, and heating? 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 DRIVER Gender Identity Not on file Sexual Orientation Not on file Last Filed Vital Signs Vital Sign Reading Time Taken Comments Blood Pressure 142/94 07/06/2022 12:00 AM HAZMAT TANKER DRIVER Pulse 64 07/05/2022 8:46 PM HAZMAT TANKER DRIVER Temperature 37.1 C (98.8 F) 07/05/2022 8:46 PM HAZMAT TANKER DRIVER Respiratory Rate 22 07/05/2022 8:46 PM HAZMAT TANKER DRIVER Oxygen Saturation 96% 07/06/2022 12:00 AM HAZMAT TANKER DRIVER Inhaled Oxygen Concentration - - Weight 74.8 kg (165 lb) 07/05/2022 8:46 PM HAZMAT TANKER DRIVER Height 175.3 cm (5' 9) 07/05/2022 8:46 PM HAZMAT TANKER DRIVER Body Mass Index 24.37 07/05/2022 8:46 PM HAZMAT TANKER DRIVER Plan of Treatment Health Maintenance Due Date [...] this topic Medical Devices Implanted Type Area Materials Scheduler Device Identifier Shelf Expiration Date Model / Serial / Lot Stent Tria Sft 6x30 Implanted:Qty: 1 on 03/02/2022 by John Mathews MD at [facility] Right: Ureter [employer] 10/18/2024 [id number] 0 / / [id number] Stent Uret 7fr 28cm Pgtl Crv Tpr Tip - [id number] Implanted:Qty: 1 on 07/03/2022 by Cale Trejo MD at [facility] Left: Ureter [employer] 12/03/2022 [id number] 0 / [id number] 0 / [id number] [place] [address] [place] [address] MEDICAID [place] Advance Directives * Full Code (Latest Code Status on File) Date Activated Date Inactivated Comments 06/26/2022 10:21 PM 06/28/2022 4:13 PM * Full Code Date Activated Date Inactivated Comments 02/28/2022 9:54 PM 03/03/2022 1:17 PM
--- OUTSIDE RECORDS SUMMARY | 2025-05-12 10:36 | XMS_ITS | Encounter Summary ---
Author Organization [facility] Address [address] [place] [address] Phone Care Team Providers Care Director Of Communications Name Role Phone Will Wei APRN, CNP Primary Care Pr ovider Shanti Mittal MD Unavailable [phone] Reason for Visit * Reason Comments Medication Refill Encounter Details Date Type Department Care Team (Late st Contact Info) Description 06/23/2023 Refill [facility] - [place] [address] [place] [id number] Will Wei APRN, REMOTE ENCODING OPERATIONS SUPERVISOR #[address] [address] Medication Refill Social History Tobacco Use Types [...] with Citalopram for at least 6 months KOUT OPERATOR documented in this encounter Plan of Treatment Not on file documented as of this encounter Visit Diagnoses Diagnosis Depressive disorder Depressive disorder, not elsewhere classified documented in this encounter Additional Health Concerns Assessment Noted Time PHQ-9 Depression Total Score: 8 01/18/20 19 1:00 PM CDT documented as of this encounter Care Teams Director Of Communications Relationship Specialty Start Date End Date Will Wei APRN, CNP #2 [facility] [address] [place] [address] PCP - General Advanced Practice Nurse 10/06/22 Shanti Mittal MD #2 [facility] [address] [place] [address] Consulting Physician Urology 10/03/22 documented as of this encounter
--- OUTSIDE RECORDS SUMMARY | 2025-05-12 10:36 | XMS_ITS | Encounter Summary ---
Author Organization [facility] Address [address] [place] [address] Phone Care Team Providers Care Education Professor Name Role Phone Will Wei APRN, CNP Primary Care Pr ovider Shanti Mittal MD Unavailable [phone] Reason for Visit * Reason Comments Medication Refill Encounter Details Date Type Department Care Team (Late st Contact Info) Description 12/26/2023 Refill [facility] - [place] [address] [place] [id number] Will Wei APRN, CONFIGURATION MANAGEMENT ADMINISTRATOR #[address] [address] Medication Refill Social History Tobacco Use Types [...] Schroeder CMA - 12/26/2023 1:27 PM CDT [facility] [employer] message was sent to patient; phone number [...] documented as of this encounter Care Teams Education Professor Relationship Specialty Start Date End Date Will Wei APRN, CONFIGURATION MANAGEMENT ADMINISTRATOR #[address] [address] PCP - General Advanced Practice Nurse 10/06/22 Shanti Mittal MD #2 [facility] [address] [place] [address] Consulting Physician Urology 10/03/22 documented as of this encounter
--- OUTSIDE RECORDS SUMMARY | 2025-05-12 10:36 | XMS_ITS | Encounter Summary ---
Author Organization [facility] Address [address] [place] [address] Phone Care Team Providers Care Designer/Writer Name Role Phone Will Wei APRN, CNP Primary Care Pr ovider Shanti Mittal MD Unavailable [phone] Reason for Visit * Reason Comments Medication Refill Encounter Details Date Type Department Care Team (Late st Contact Info) Description 03/17/2023 Refill [facility] - [place] [address] [place] [id number] Will Wei APRN, PLANT MACHINIST #[address] [address] Medication Refill Social History Tobacco Use Types [...] documented as of this encounter Care Teams Designer/Writer Relationship Specialty Start Date End Date Will Wei APRN, ROBERTO #2 [facility] [address] [place] [address] PCP - General Advanced Practice Nurse 10/06/22 Shanti Mittal MD #2 [facility] [address] [place] [address] Consulting Physician Urology 10/03/22 documented as of this encounter
--- OUTSIDE RECORDS SUMMARY | 2025-05-12 10:36 | XMS_ITS | Encounter Summary ---
Author Organization [facility] Address [address] [place] [address] Phone Care Team Providers Care Veterinary Pathologist Name Role Phone Will Wei APRN, CNP Primary Care Pr ovider Shanti Mittal MD Unavailable [phone] Reason for Visit * Reason Comments Medication Refill Encounter Details Date Type Department Care Team (Late st Contact Info) Description 01/26/2024 Refill [facility] - [place] [address] [place] [phone] Will Wei APRN, LONG GOODS DRIER #[address] [address] Medication Refill Social History Tobacco Use Types [...] note were not included. Will Wei APRN, LONG GOODS DRIER to [facility] 01/21/24 9:04 AM Needs OV * Telephone Encounter - Sharmila Chaudhari RN - 01/26/2024 12:54 PM CDT Pt needs OV. Per RMA 01/22/24: NO ACTIVE PHONE NUMBER IN PATIENT CHART OR ADDRESS [employer] message was sent to patient, but remains unread. documented in this encounter Plan of Treatment Not on file documented as of this encounter Visit Diagnoses Diagnosis Depressive disorder Depressive disorder, not elsewhere classified documented in this encounter Additional Health Concerns Assessment Noted Time PHQ-9 Depression Total Score: 8 01/18/20 19 1:00 PM CDT documented as of this encounter Care Teams Veterinary Pathologist Relationship Specialty Start Date End Date Will Wei APRN, LONG GOODS DRIER #2 [facility] [address] [place] [address] PCP - General Advanced Practice Nurse 10/06/22 Shanti Mittal MD #2 [facility] [address] [place] [address] Consulting Physician Urology 10/03/22 documented as of this encounter
--- OUTSIDE RECORDS SUMMARY | 2025-05-12 10:36 | XMS_ITS | Clinical Summary ---
Author Organization [facility] Address [address] [place] [address] Care Team Providers Care Breaker Mechanic Name Role Phone Cary Meng Unavailable Unavailable Abdulaziz Wooten MD Primary Care Provider [phone] Allergies Active Allergy Reactions Criticality Noted Date [...] (01/28/2020): Added automatically from request for surgery [id number] Gastroesophageal reflux disease without esophagi tis 01/20/2020 Nausea and vomiting 01/20/2020 Renal calculus, right 01/19/2020 Overview (01/19/2020): Added automatically from request for surgery [id number] Chronic migraine without aura 07/13/2016 Overview (09/01/2016): [...] Care Team Description 05/08/2025 [facility] Enrollment [facility] Warm Hand Off Program [address] [place], [place] [phone] Cary Meng 04/30/2025 Documentation [facility] [address] [place], [place] [phone] Cary Meng 04/28/2025 12:27 PM PAINTING AND COATING WORKER - 04/28/2025 5:01 PM PAINTING AND COATING WORKER Emergency [facility] Emergency Department [address] [place] [address] Barbara Landa MD Polysubstance abuse (Primary Dx) Discharge Disposition: Discharge to home or self care 04/28/2025 Documentation [facility] Hand Off [facility] [address] [place], [place] [phone] Alberto David RRT from Last 3 Months [...] on file Legal Sex Male 4:22 AM PAINTING AND COATING WORKER Gender Identity Not on file Sexual Orientation Not on file Last Filed Vital Signs Vital Sign Reading Time Taken Comments Blood Pressure 146/100 04/28/2025 4:59 PM PAINTING AND COATING WORKER Pulse 69 04/28/2025 4:59 PM PAINTING AND COATING WORKER Temperature 37.1 C (98.7 F) 04/28/2025 12:40 PM PAINTING AND COATING WORKER Respiratory Rate 14 04/28/2025 4:59 PM PAINTING AND COATING WORKER Oxygen Saturation 96% 04/28/2025 4:59 PM PAINTING AND COATING WORKER Inhaled Oxygen Concentration - - Weight 72.6 kg (160 lb) 04/28/2025 12:40 PM PAINTING AND COATING WORKER Height 175.3 cm (5' 9) 04/28/2025 12:40 PM PAINTING AND COATING WORKER Body Mass Index 23.63 04/28/2025 12:40 PM PAINTING AND COATING WORKER Plan of Treatment Health Maintenance Due Date [...] 12/25/2025, 12/26/2015 Medical Devices Explanted Type Area Environmental Studies Program Director Device Identifier Shelf Expiration Date Model / Serial / Lot Bard Inlay [place] 7fr X 26cm Implanted:Qty: 1 on 01/21/2020 by Hector Martinez MD at [facility] Explanted:Qty: 1 on 03/26/2020 by Raj Hernandez DO at [facility] Right: Ureter [employer] [id number] 08/28/2023 [id number] / / [id number] [employer] Jaison 175-263 6fr 26cm Large Inner Lumen Low Profile Bladder Donny Taper Tip Latex Free - [id number] Implanted:Qty: 1 on 03/26/2020 by Raj Hernandez DO at [facility] Explanted:Qty: 1 on 04/14/2020 by Raj Hernandez DO Right: Ureter [employer] Jaison [id number] 11/03/2021 [id number] / / [id number] Procedures Procedure Name Priority Date/Time Associated Diagnosis Comments CT KUB STONE WO CONTRAST ED Urgent/IP Urgent 04/28/2025 4:02 PM PAINTING AND COATING WORKER EGFR STAT 04/28/2025 3:17 PM PAINTING AND COATING WORKER DIFFERENTIAL AUTO STAT 04/28/2025 3:1 7 PM PAINTING AND COATING WORKER ETHANOL STAT 04/28/2025 3:17 PM PAINTING AND COATING WORKER COMPREHENSIVE METABOLIC PANEL STAT 04/28/2025 3:17 PM PAINTING AND COATING WORKER CBC WITH AUTO DIFFERENTIAL STAT 04/28/2025 3:17 PM PAINTING AND COATING WORKER DRUGS OF ABUSE SCREEN, URINE WITHOUT CONFIRMATION STAT 04/28/2025 1:08 PM PAINTING AND COATING WORKER URINALYSIS AND REFLEX TO MICROSCOPIC AND CULTURE STAT 04/28/2025 1:08 PM PAINTING AND COATING WORKER from Last 3 Months Results * CT KUB Stone WO Contrast (04/28/2025 4:02 PM PAINTING AND COATING WORKER) Anatomical Region Laterality Modality Abdomen N/A Computed Tomogra phy 04/28/2025 4:30 PM PAINTING AND COATING WORKER Impressions 04/28/2025 4:30 PM PAINTING AND COATING WORKER 1. Kidney stones are seen with no [...] Denis Dey M.D. Narrative 04/28/2025 4:30 PM PAINTING AND COATING WORKER EXAMINATION: CT KUB STONE WO CONTRAST HISTORY: [...] inal Result * eGFR (04/28/2025 3:17 PM PAINTING AND COATING WORKER) eGFR 77 >=60 mL/min/1. 73 m2 Comment: [...] last reviewed 2021. Blood 04/28/2025 3:17 PM PAINTING AND COATING WORKER 04/28/2025 3:27 PM PAINTING AND COATING WORKER Barbara Landa MD LAB BLOOD ORDERABLE S Final Result [facility] [place]) 1 [facility] Department [place] [employer] [place] [address] * Differential, auto (04/28/2025 3:17 PM PAINTING AND COATING WORKER) Neutrophil abs 6.25 1.50 - 6.50 K/cumm [...] revised on 2017. Blood 04/28/2025 3:17 PM PAINTING AND COATING WORKER 04/28/2025 3:27 PM PAINTING AND COATING WORKER us Barbara Landa MD LAB BLOOD ORDERABLE S Final Result Performing Organization Address City/[facility]/ZIP Co de Phone Number [facility] ([place]) 1 [facility] SSN Funding [place] [place] [address] * CBC with auto differential (04/28/2025 3:17 PM PAINTING AND COATING WORKER) WBC 9.78 3.80 - 9.90 K/cumm Hgb [...] [facility] ([place]) Blood 04/28/2025 3:17 PM PAINTING AND COATING WORKER 04/28/2025 3:27 PM PAINTING AND COATING WORKER us Barbara Landa MD LAB BLOOD ORDERABLE S Final Result [facility] ([place]) 1 [facility] [place] [address] * Ethanol (04/28/2025 3:17 PM PAINTING AND COATING WORKER) Ethanol <10 <=10 mg/dL Comment: Interpretive Data Legal limit of intoxication > or = 80 mg/dL Levels > or = 400 mg/dL are potentially TOXIC. Current interpretive data was last revised on 2018. Blood 04/28/2025 3:17 PM PAINTING AND COATING WORKER 04/28/2025 3:27 PM PAINTING AND COATING WORKER us Barbara Landa MD LAB BLOOD ORDERABLE S Final Result [facility] ([place]) 1 [facility] Department [place] [address] * (ABNORMAL) Comprehensive metabolic panel (04/28/2025 3:17 PM PAINTING AND COATING WORKER) Sodium 138 135 - 145 mmol/L Potassium, [...] 10.6(H) 8.5 - 10.3 mg/dL [facility] ([place]) Bilirubin, total 0.2 0.1 - 1.2 mg/dL [...] may be affected. Blood 04/28/2025 3:17 PM PAINTING AND COATING WORKER 04/28/2025 3:27 PM PAINTING AND COATING WORKER us Barbara Landa MD LAB BLOOD ORDERABLE S Final Result [facility] ([facility]) 1 [facility] Department [place] [address] * Urinalysis reflex to microscopic and culture Urine (04/28/2025 1:08 PM PAINTING AND COATING WORKER) Color, ur Yellow Yellow Clarity, ur Clear [...] tendency for uric acid stone formation. Source: [facility] [employer] Current Interpretive Data was last revised on [...] [facility] ([place]) Urine 04/28/2025 1:08 PM PAINTING AND COATING WORKER 04/28/2025 2:49 PM PAINTING AND COATING WORKER Barbara Landa MD LAB MICROBIOLOGY - GENERAL ORDERABLES Final Result [facility] ([place]) 1 [facility] Department [place] [address] * (ABNORMAL) Drugs of Abuse Screen, Urine without Confirmation (04/28/2025 1:08 PM PAINTING AND COATING WORKER) Amphetamine, ur Screen Positive, presumptive (A) CutOff [...] revised on 2017. Urine 04/28/2025 1:08 PM PAINTING AND COATING WORKER 04/28/2025 1:08 PM PAINTING AND COATING WORKER Narrative [facility] ([place]) - 04/28/2025 1:25 PM PAINTING AND COATING WORKER Drug of Abuse screening is performed by immunoassay for medical purposes only. This is not to be used for Pain Management purposes. us Hattie Carmichael MD LAB URINE ORDERABLES Cora riley Result [facility] ([place]) 1 [facility] Department [place] [address] from Last 3 Months Insurance [facility] Advance Directives For more information, please contact: [phone] * Full Code (Latest Code Status on File) Date Activated Date Inactivated Comments 03/26/2020 12:45 PM 03/27/2020 6:43 PM * Full Code Date Activated Date Inactivated Comments 01/21/2020 2:45 AM 01/23/2020 9:41 PM * Full Code Date Activated Date Inactivated Comments 01/20/2020 1:37 AM 01/20/2020 6:01 AM Care Teams Breaker Mechanic Relationship Specialty Start Date End Date Abdulaziz Wooten MD [address] [place] [address] [place] [address] PCP - General Family Medicine 11/25/24 Cary Meng Student Outreach Coordinator Addiction Medicine 03/07/21
--- OUTSIDE RECORDS SUMMARY | 2025-05-12 10:36 | XMS_ITS | Clinical Summary ---
Author Organization [facility] Address [address] [place] [address] Phone Care Team Providers Care Spudder Name Role Phone Will Wei APRN, ROBERTO Primary Care Pr ovider Shanti Mittal MD Unavailable [phone] Allergies Active Allergy Reactions Criticality Noted [...] Comments Blood Pressure 150/75 05/15/2024 7:00 PM CHANNEL SALES DIRECTOR Pulse 99 05/15/2024 5:35 PM CHANNEL SALES DIRECTOR Temperature 37.1 C (98.7 F) 05/15/2024 5:35 PM CHANNEL SALES DIRECTOR Respiratory Rate 18 05/15/2024 5:35 PM CHANNEL SALES DIRECTOR Oxygen Saturation 98% 05/15/2024 5:35 PM CHANNEL SALES DIRECTOR Inhaled Oxygen Concentration - - Weight 81.6 kg (180 lb) 05/15/2024 5:35 PM CHANNEL SALES DIRECTOR Height 175.3 cm (5' 9) 05/15/2024 5:35 PM CHANNEL SALES DIRECTOR Body Mass Index 26.58 05/15/2024 5:35 PM CHANNEL SALES DIRECTOR Plan of Treatment Health Maintenance Due Date [...] this topic Medical Devices Implanted Type Area Mysql Dba Device Identifier Shelf Expiration Date Model / Serial / Lot Stent Ureteral 6fr 2.1fr 28cm 2 Pigtail Curve 2 Durometer Taper Tip Loprfl Graduated Polaris Ultra - [id number] Implanted:Qty : 1 on 10/24/2022 by Shanti Mittal MD at [facility] IMPLANT Right: Ureter [employer] 08/03/2025 [id number] 0 / [id number] 0 / [id number] Description:STRINGS OFF Stent Ureteral 6fr 2.1fr 28cm 2 Pigtail Curve 2 Durometer Taper Tip Loprfl Graduated Polaris Ultra - [id number] Implanted:Qty : 1 on 10/24/2022 by Shanti Mittal MD at [facility] IMPLANT Left: Ureter [employer] 08/03/2025 [id number] 0 / [id number] 0 / [id number] Description:STRINGS OFF Explanted Type Area Mysql Dba Device Identifier Shelf Expiration Date Model / Serial / Lot Stent Ureteral 6fr 2.1fr 28cm 2 Pigtail Curve 2 Durometer Taper Tip Loprfl Graduated Polaris Ultra - [id number] Implanted:Qty : 1 on 04/12/2022 by Shanti Mittal MD at [facility] Explanted:Qty : 1 on 10/24/2022 at [facility] IMPLANT Left: Ureter [employer] 10/18/2024 [id number] 0 / [id number] / [id number] Description:STRINGS OFF Stent removed 10.24. per and exchange inserted Procedures Procedure Name Priority Date/Time Associated Diagnosis Comments STOOL, OCCULT BLOOD, DIAGNOSTIC, VIA GUAIAC STAT 01/01/2019 4:30 PM CDT from Last 3 Months or Most Recently Relevant to Health Maintenance Results * (ABNORMAL) Stool Occult Blood - Diagnostic (01/01/2019 4:30 PM CDT) OCCULT BLOOD DIAG Positive(A ) Negative 01/01/2019 4:49 PM CDT [facility] Stool specimen (specimen) Non-Phlebotomy Collection / Unknown 01/01/2019 4:30 PM CDT 01/01/2019 4:42 PM CDT Esteban Ahmadi PAC BODY FLUIDS & STOOLS ORDERABLES Final Result [facility] [address] [place] [address] from Last 3 Months or Most Recently Relevant to Health Maintenance Advance Directives * Full Code (Latest Code Status on File) Date Activated Date Inactivated Comments 04/12/2022 4:40 AM 04/13/2022 7:41 PM CPR-Full T reatment: FULL ARREST: Attempt Resuscitation/CPR wit intubation and mechanical ventilation. PRE-ARREST: Use entire range of life support measures to stabilize the patient. Care Teams Spudder Relationship Specialty Start Date End Date Will Wei APRN, UX RESEARCHER #2 [facility] [address] [place] [address] PCP - General Advanced Practice Nurse 10/06/22 Shanti Mittal MD #2 [facility] [address] [place] [address] Consulting Physician Urology 10/03/22
[2025-05-12] MEDS: LIDOCAINE 5% PATCH 1 PATCH TRANSDERM (10:37)
[2025-05-12 11:34] VITALS: BP 149/92; PULSE 74; RESP 16; TEMP 36.4; O2SAT 98
--- NOTE | 2025-05-12 11:41 | PC.NURSE ---
Nurse Ritchie given report regarding patient. Will send [place] staff to pickling tank operator patient.
--- OUTSIDE RECORDS SUMMARY | 2025-05-12 11:53 | XMS_ITS | Encounter Summary ---
Author Organization [facility] Address [address] [place] [address] Phone Care Team Providers Care Director Mobile Media Solutions Name Role Phone Will Wei APRN, CNP Primary Care Pr ovider Shanti Mittal MD Unavailable [phone] Reason for Visit * Reason Comments Medication Refill Encounter Details Date Type Department Care Team (Late st Contact Info) Description 01/26/2024 Refill [facility] - Family Medicine - [place] [address] [place] [phone] Will Wei APRN, STUDENT AFFAIRS DEAN [address] [address] Medication Refill Social History Tobacco Use Types [...] note were not included. Will Wei APRN, STUDENT AFFAIRS DEAN to [facility] 01/21/24 9:04 AM Needs OV * Telephone Encounter - Sharmila Chaudhari RN - 01/26/2024 12:54 PM CDT Pt needs OV. Per RMA 01/22/24: NO ACTIVE PHONE NUMBER IN PATIENT CHART OR ADDRESS orderTalk message was sent to patient, but remains unread. documented in this encounter Plan of Treatment Not on file documented as of this encounter Visit Diagnoses Diagnosis Depressive disorder Depressive disorder, not elsewhere classified documented in this encounter Additional Health Concerns Assessment Noted Time PHQ-9 Depression Total Score: 8 01/18/20 19 1:00 PM CDT documented as of this encounter Care Teams Director Mobile Media Solutions Relationship Specialty Start Date End Date Will Wei APRN, STUDENT AFFAIRS DEAN #2 [facility] [address] [place] [address] PCP - General Advanced Practice Nurse 10/06/22 Shanti Mittal MD #2 [facility] [address] [place] [address] Consulting Physician Urology 10/03/22 documented as of this encounter
--- OUTSIDE RECORDS SUMMARY | 2025-05-12 11:53 | XMS_ITS | Clinical Summary ---
Author Organization [facility] Address [address] [place] [address] Phone Care Team Providers Care Perfume And Toilet Water Maker Name Role Phone Will Wei APRN, ROBERTO Primary Care Pr ovider Shanti Mittal MD Unavailable [phone] Allergies Active Allergy Reactions Criticality Noted [...] Comments Blood Pressure 150/75 05/15/2024 7:00 PM SHEAR GRINDER OPERATOR Pulse 99 05/15/2024 5:35 PM SHEAR GRINDER OPERATOR Temperature 37.1 C (98.7 F) 05/15/2024 5:35 PM SHEAR GRINDER OPERATOR Respiratory Rate 18 05/15/2024 5:35 PM SHEAR GRINDER OPERATOR Oxygen Saturation 98% 05/15/2024 5:35 PM SHEAR GRINDER OPERATOR Inhaled Oxygen Concentration - - Weight 81.6 kg (180 lb) 05/15/2024 5:35 PM SHEAR GRINDER OPERATOR Height 175.3 cm (5' 9) 05/15/2024 5:35 PM SHEAR GRINDER OPERATOR Body Mass Index 26.58 05/15/2024 5:35 PM SHEAR GRINDER OPERATOR Plan of Treatment Health Maintenance Due [...] this topic Medical Devices Implanted Type Area Financial Aid Manager Device Identifier Shelf Expiration Date Model / Serial / Lot Stent Ureteral 6fr 2.1fr 28cm 2 Pigtail Curve 2 Durometer Taper Tip Loprfl Graduated Polaris Ultra - [id number] Implanted:Qty : 1 on 10/24/2022 by [facility] IMPLANT Right: Ureter [employer] 08/03/2025 [id number] 0 / [id number] 0 / [id number] Description:STRINGS OFF Stent Ureteral 6fr 2.1fr 28cm 2 Pigtail Curve 2 Durometer Taper Tip Loprfl Graduated Polaris Ultra - [id number] Implanted:Qty : 1 on 10/24/2022 by Sh[facility]ittal [facility] IMPLANT Left: Ureter [employer] 08/03/2025 [id number] 0 / [id number] 0 / [id number] Description:STRINGS OFF Explanted Type Area Financial Aid Manager Device Identifier Shelf Expiration Date Model / Serial / Lot Stent Ureteral 6fr 2.1fr 28cm 2 Pigtail Curve 2 Durometer Taper Tip Loprfl Graduated Polaris Ultra - [id number] Implanted:Qty : 1 on 04/12/2022 by Shanti Mittal MD at [facility] Explanted:Qty : 1 on 10/24/2022 at [facility] IMPLANT Left: Ureter [employer] 10/18/2024 [id number] 0 / [id number] 0 / [id number] Description:STRINGS OFF Stent removed 10.24. per and exchange inserted Procedures Procedure Name Priority Date/Time Associated Diagnosis Comments STOOL, OCCULT BLOOD, DIAGNOSTIC, VIA GUAIAC STAT 01/01/2019 4:30 PM CDT from Last 3 Months or Most Recently Relevant to Health Maintenance Results * (ABNORMAL) Stool Occult Blood - Diagnostic (01/01/2019 4:30 PM CDT) OCCULT BLOOD DIAG Positive(A ) Negative 01/01/2019 4:49 PM CDT [email or web address] Stool specimen (specimen) Non-Phlebotomy Collection / Unknown 01/01/2019 4:30 PM CDT 01/01/2019 4:42 PM CDT Esteban Ahmadi PAC BODY FLUIDS & STOOLS ORDERABLES Final Result [facility] [address] [place] [address] from Last 3 Months or Most Recently Relevant to Health Maintenance Advance Directives * Full Code (Latest Code Status on File) Date Activated Date Inactivated Comments 04/12/2022 4:40 AM 04/13/2022 7:41 PM CPR-Full T reatment: FULL ARREST: Attempt Resuscitation/CPR wit intubation and mechanical ventilation. PRE-ARREST: Use entire range of life support measures to stabilize the patient. Care Teams Perfume And Toilet Water Maker Relationship Specialty Start Date End Date Will Wei APRN, OUTBOARD MOTOR TESTER #2 [facility] [address] [place] [address] PCP - General Advanced Practice Nurse 10/06/22 Shanti Mittal MD #2 [facility] [address] [place] [address] Consulting Physician Urology 10/03/22
--- OUTSIDE RECORDS SUMMARY | 2025-05-12 11:53 | XMS_ITS | Clinical Summary ---
Author Organization [facility] Address [address] [place] [address] Care Team Providers Care Sausage Inspector Name Role Phone Unavailable Primary Care Provider Unavailabl e Source Comments [facility],non-owned Affiliates and Associated Physician Practices is amultiple site organization consisting of ambulatory clinics and hospital sitesin [place], [place], [place] and [place]. This disclosure is being madepursuant to the Care Everywhere program and may not contain all information available regarding this patient. Last updated 18.[facility] [place] Allergies Active Allergy Reactions Criticality Noted Date [...] naloxone HCl (Narcan) 4 MG/0.1ML nasal spray Coats 1 (one) spray into the nose as [...] Pain 25 tablet 3 Active HYDROcodone-artie taminophen (Calpine) 5-325 MG tabletIndicatio ns:Flank pain Take 1 [...] medical care, and heating? Somewhat hard 06/27/2022 [facility] - Occup[facility] Stress [...] on file Legal Sex Male 6:34 AM COMPLIANCE QUALITY PERFORMANCE ANALYST Gender Identity Not on file Sexual Orientation Not on file Last Filed Vital Signs Vital Sign Reading Time Taken Comments Blood Pressure 142/94 07/06/2022 12:00 AM COMPLIANCE QUALITY PERFORMANCE ANALYST Pulse 64 07/05/2022 8:46 PM COMPLIANCE QUALITY PERFORMANCE ANALYST Temperature 37.1 C (98.8 F) 07/05/2022 8:46 PM COMPLIANCE QUALITY PERFORMANCE ANALYST Respiratory Rate 22 07/05/2022 8:46 PM COMPLIANCE QUALITY PERFORMANCE ANALYST Oxygen Saturation 96% 07/06/2022 12:00 AM COMPLIANCE QUALITY PERFORMANCE ANALYST Inhaled Oxygen Concentration - - Weight 74.8 kg (165 lb) 07/05/2022 8:46 PM COMPLIANCE QUALITY PERFORMANCE ANALYST Height 175.3 cm (5' 9) 07/05/2022 8:46 PM COMPLIANCE QUALITY PERFORMANCE ANALYST Body Mass Index 24.37 07/05/2022 8:46 PM COMPLIANCE QUALITY PERFORMANCE ANALYST Plan of Treatment Health Maintenance Due Date [...] this topic Medical Devices Implanted Type Area Continuous Absorption Process Operator Device Identifier Shelf Expiration Date Model / Serial / Lot Stent Tria Sft 6x30 Implanted:Qty: 1 on 03/02/2022 by John Mathews MD at [facility] Right: Ureter [employer] 10/18/2024 [id number] 0 / / [id number] Stent Uret 7fr 28cm Pgtl Crv Tpr Tip - [id number] Implanted:Qty: 1 on 07/03/2022 by Cale Trejo MD at [facility] Left: Ureter [employer] 12/03/2022 [id number] 0 / [id number] 0 / [id number] [place] [address] [place] [address] MEDICAID [place] Advance Directives * Full Code (Latest Code Status on File) Date Activated Date Inactivated Comments 06/26/2022 10:21 PM 06/28/2022 4:13 PM * Full Code Date Activated Date Inactivated Comments 02/28/2022 9:54 PM 03/03/2022 1:17 PM
--- OUTSIDE RECORDS SUMMARY | 2025-05-12 11:53 | XMS_ITS | Encounter Summary ---
Author Organization [facility] Address [address] [place] [address] Phone Care Team Providers Care Cherry Cutter Name Role Phone Will Wei APRN, CNP Primary Care Pr ovider Shanti Mittal MD Unavailable [phone] Reason for Visit * Reason Comments Medication Refill Encounter Details Date Type Department Care Team (Late st Contact Info) Description 12/26/2023 Refill [facility] - Family Medicine - [place] [address] [place] [id number] Will Wei APRN, VARIETY SAW OPERATOR #[address] [address] Medication Refill Social History Tobacco Use Types [...] Schroeder CMA - 12/26/2023 1:27 PM CDT [employer] message was sent to patient; phone number [...] documented as of this encounter Care Teams Cherry Cutter Relationship Specialty Start Date End Date Will Wei APRN, VARIETY SAW OPERATOR #[address] [address] PCP - General Advanced Practice Nurse 10/06/22 Shanti Mittal MD #2 [facility] [address] [place] [address] Consulting Physician Urology 10/03/22 documented as of this encounter
--- OUTSIDE RECORDS SUMMARY | 2025-05-12 11:53 | XMS_ITS | Clinical Summary ---
Author Organization [facility] Address [address] [place] [address] Care Team Providers Care Seat Coverer Name Role Phone Cary Meng Unavailable Unavailable Abdulaziz Wooten MD Primary Care Provider [phone] Allergies Active Allergy Reactions Criticality Noted Date [...] (01/28/2020): Added automatically from request for surgery [id number] Gastroesophageal reflux disease without esophagi tis 01/20/2020 Nausea and vomiting 01/20/2020 Renal calculus, right 01/19/2020 Overview (01/19/2020): Added automatically from request for surgery [id number] Chronic migraine without aura 07/13/2016 Overview (09/01/2016): [...] Care Team Description 05/08/2025 [facility] Enrollment [facility] Warm Hand Off Program [address] [place], [place] [phone] Cary Meng 04/30/2025 Documentation [facility] [address] [place], [place] [phone] Cary Meng 04/28/2025 12:27 PM GRADUATE STUDENT INSTRUCTOR - 04/28/2025 5:01 PM GRADUATE STUDENT INSTRUCTOR Emergency [facility] Emergency Department 1 [place] [address] Barbara Landa MD Polysubstance abuse (Primary Dx) Discharge Disposition: Discharge to home or self care 04/28/2025 Documentation [facility] [address] [place], [place] [phone] Alberto David RRT from Last 3 Months [...] on file Legal Sex Male 4:22 AM GRADUATE STUDENT INSTRUCTOR Gender Identity Not on file Sexual Orientation Not on file Last Filed Vital Signs Vital Sign Reading Time Taken Comments Blood Pressure 146/100 04/28/2025 4:59 PM GRADUATE STUDENT INSTRUCTOR Pulse 69 04/28/2025 4:59 PM GRADUATE STUDENT INSTRUCTOR Temperature 37.1 C (98.7 F) 04/28/2025 12:40 PM GRADUATE STUDENT INSTRUCTOR Respiratory Rate 14 04/28/2025 4:59 PM GRADUATE STUDENT INSTRUCTOR Oxygen Saturation 96% 04/28/2025 4:59 PM GRADUATE STUDENT INSTRUCTOR Inhaled Oxygen Concentration - - Weight 72.6 kg (160 lb) 04/28/2025 12:40 PM GRADUATE STUDENT INSTRUCTOR Height 175.3 cm (5' 9) 04/28/2025 12:40 PM GRADUATE STUDENT INSTRUCTOR Body Mass Index 23.63 04/28/2025 12:40 PM GRADUATE STUDENT INSTRUCTOR Plan of Treatment Health Maintenance Due Date [...] 12/25/2025, 12/26/2015 Medical Devices Explanted Type Area Printing Equipment Mechanic Apprentice Device Identifier Shelf Expiration Date Model / Serial / Lot Bard Inlay [place] 7fr X 26cm Implanted:Qty: 1 on 01/21/2020 by Hector Martinez MD at [facility] Explanted:Qty: 1 on 03/26/2020 by Raj Hernandez DO at [facility] Right: Ureter [employer] [id number] 08/28/2023 [id number] / / [id number] [employer] Jaison [id number] 6fr 26cm Large Inner Lumen Low Profile Bladder Donny Taper Tip Latex Free - [id number] Implanted:Qty: 1 on 03/26/2020 by Raj Hernandez DO at [facility] Explanted:Qty: 1 on 04/14/2020 by Raj Hernandez DO Right: Ureter [employer] Jaison [id number] 11/03/2021 [id number] / / [id number] Procedures Procedure Name Priority Date/Time Associated Diagnosis Comments CT KUB STONE WO CONTRAST ED Urgent/IP Urgent 04/28/2025 4:02 PM GRADUATE STUDENT INSTRUCTOR EGFR STAT 04/28/2025 3:17 PM GRADUATE STUDENT INSTRUCTOR DIFFERENTIAL AUTO STAT 04/28/2025 3:1 7 PM GRADUATE STUDENT INSTRUCTOR ETHANOL STAT 04/28/2025 3:17 PM GRADUATE STUDENT INSTRUCTOR COMPREHENSIVE METABOLIC PANEL STAT 04/28/2025 3:17 PM GRADUATE STUDENT INSTRUCTOR CBC WITH AUTO DIFFERENTIAL STAT 04/28/2025 3:17 PM GRADUATE STUDENT INSTRUCTOR DRUGS OF ABUSE SCREEN, URINE WITHOUT CONFIRMATION STAT 04/28/2025 1:08 PM GRADUATE STUDENT INSTRUCTOR URINALYSIS AND REFLEX TO MICROSCOPIC AND CULTURE STAT 04/28/2025 1:08 PM GRADUATE STUDENT INSTRUCTOR from Last 3 Months Results * CT KUB Stone WO Contrast (04/28/2025 4:02 PM GRADUATE STUDENT INSTRUCTOR) Anatomical Region Laterality Modality Abdomen N/A Computed Tomogra phy 04/28/2025 4:30 PM GRADUATE STUDENT INSTRUCTOR Impressions 04/28/2025 4:30 PM GRADUATE STUDENT INSTRUCTOR 1. Kidney stones are seen with no [...] Denis Dey M.D. Narrative 04/28/2025 4:30 PM GRADUATE STUDENT INSTRUCTOR EXAMINATION: CT KUB STONE WO CONTRAST HISTORY: [...] inal Result * eGFR (04/28/2025 3:17 PM GRADUATE STUDENT INSTRUCTOR) eGFR 77 >=60 mL/min/1. 73 m2 Comment: [...] last reviewed 2021. Blood 04/28/2025 3:17 PM GRADUATE STUDENT INSTRUCTOR 04/28/2025 3:27 PM GRADUATE STUDENT INSTRUCTOR Barbara Landa MD LAB BLOOD ORDERABLE S Final Result [facility]ELA [facility] [place]) 1 [facility] Department [place] [address] * Differential, auto (04/28/2025 3:17 PM GRADUATE STUDENT INSTRUCTOR) Neutrophil abs 6.25 1.50 - 6.50 K/cumm [...] revised on 2017. Blood 04/28/2025 3:17 PM GRADUATE STUDENT INSTRUCTOR 04/28/2025 3:27 PM GRADUATE STUDENT INSTRUCTOR us Barbara Landa MD LAB BLOOD ORDERABLE S Final Result Performing Organization Address City/[facility]/ZIP Co de Phone Number [facility] ([place]) 1 [facility] [employer] [place] [address] * CBC with auto differential (04/28/2025 3:17 PM GRADUATE STUDENT INSTRUCTOR) WBC 9.78 3.80 - 9.90 K/cumm Hgb [...] [facility] ([place]) Blood 04/28/2025 3:17 PM GRADUATE STUDENT INSTRUCTOR 04/28/2025 3:27 PM GRADUATE STUDENT INSTRUCTOR us Barbara Landa MD LAB BLOOD ORDERABLE S Final Result [facility] ([place]) 1 [facility] [place] [employer] [address] * Ethanol (04/28/2025 3:17 PM GRADUATE STUDENT INSTRUCTOR) Ethanol <10 <=10 mg/dL Comment: Interpretive Data Legal limit of intoxication > or = 80 mg/dL Levels > or = 400 mg/dL are potentially TOXIC. Current interpretive data was last revised on 2018. Blood 04/28/2025 3:17 PM GRADUATE STUDENT INSTRUCTOR 04/28/2025 3:27 PM GRADUATE STUDENT INSTRUCTOR us Barbara Landa MD LAB BLOOD ORDERABLE S Final Result [facility] ([place]) 1 [facility] Department [place] [address] * (ABNORMAL) Comprehensive metabolic panel (04/28/2025 3:17 PM GRADUATE STUDENT INSTRUCTOR) Sodium 138 135 - 145 mmol/L Potassium, [...] may be affected. Blood 04/28/2025 3:17 PM GRADUATE STUDENT INSTRUCTOR 04/28/2025 3:27 PM GRADUATE STUDENT INSTRUCTOR us Barbara Landa MD LAB BLOOD ORDERABLE S Final Result [facility] 1 [facility] Department [place] [address] * Urinalysis reflex to microscopic and culture Urine (04/28/2025 1:08 PM GRADUATE STUDENT INSTRUCTOR) Color, ur Yellow Yellow Clarity, ur Clear [...] tendency for uric acid stone formation. Source: [facility] [employer] Current Interpretive Data was last revised on [...] [facility] ([place]) Urine 04/28/2025 1:08 PM GRADUATE STUDENT INSTRUCTOR 04/28/2025 2:49 PM GRADUATE STUDENT INSTRUCTOR Barbara Landa MD LAB MICROBIOLOGY - GENERAL ORDERABLES Final Result [facility] ([place]) 1 [facility] Department [place] [address] * (ABNORMAL) Drugs of Abuse Screen, Urine without Confirmation (04/28/2025 1:08 PM GRADUATE STUDENT INSTRUCTOR) Amphetamine, ur Screen Positive, presumptive (A) CutOff [...] revised on 2017. Urine 04/28/2025 1:08 PM GRADUATE STUDENT INSTRUCTOR 04/28/2025 1:08 PM GRADUATE STUDENT INSTRUCTOR Narrative [facility] ([place]) - 04/28/2025 1:25 PM GRADUATE STUDENT INSTRUCTOR Drug of Abuse screening is performed by immunoassay for medical purposes only. This is not to be used for Pain Management purposes. us Hattie Carmichael MD LAB URINE ORDERABLES Cora riley Result [facility]A [facility] ([place]) 1 [facility] Department [place] [address] from Last 3 Months Insurance [facility] Advance Directives For more information, please contact: [phone] * Full Code (Latest Code Status on File) Date Activated Date Inactivated Comments 03/26/2020 12:45 PM 03/27/2020 6:43 PM * Full Code Date Activated Date Inactivated Comments 01/21/2020 2:45 AM 01/23/2020 9:41 PM * Full Code Date Activated Date Inactivated Comments 01/20/2020 1:37 AM 01/20/2020 6:01 AM Care Teams Seat Coverer Relationship Specialty Start Date End Date Abdulaziz Wooten MD [address] [place] [address] [place] [address] PCP - General Family Medicine 11/25/24 Cary Meng Certified Performance Technologist Addiction Medicine 03/07/21
--- OUTSIDE RECORDS SUMMARY | 2025-05-12 11:53 | XMS_ITS | Encounter Summary ---
Author Organization [facility] Address [address] [place] [address] Phone Care Team Providers Care Resaw Tailer Name Role Phone Will Wei APRN, CNP Primary Care Pr ovider Shanti Mittal MD Unavailable [phone] Reason for Visit * Reason Comments Medication Refill Encounter Details Date Type Department Care Team (Late st Contact Info) Description 06/23/2023 Refill [facility] - [place] #2 [place] [phone] Will Wei APRN, SURVEILLANCE DIRECTOR #[address] [address] Medication Refill Social History Tobacco Use Types [...] with Citalopram for at least 6 months MBLY ROOM SUPERVISOR documented in this encounter Plan of Treatment Not on file documented as of this encounter Visit Diagnoses Diagnosis Depressive disorder Depressive disorder, not elsewhere classified documented in this encounter Additional Health Concerns Assessment Noted Time PHQ-9 Depression Total Score: 8 01/18/20 19 1:00 PM CDT documented as of this encounter Care Teams Resaw Tailer Relationship Specialty Start Date End Date Will Wei APRN, CNP #2 [facility] [address] [place] [address] PCP - General Advanced Practice Nurse 10/06/22 Shanti Mittal MD #2 [facility] [address] [place] [address] Consulting Physician Urology 10/03/22 documented as of this encounter
--- OUTSIDE RECORDS SUMMARY | 2025-05-12 11:53 | XMS_ITS | Encounter Summary ---
Author Organization [facility] Address [address] [place] [address] Phone Care Team Providers Care Repair Department Manager Name Role Phone Will Wei APRN, CNP Primary Care Pr ovider Shanti Mittal MD Unavailable [phone] Reason for Visit * Reason Comments Medication Refill Encounter Details Date Type Department Care Team (Late st Contact Info) Description 03/17/2023 Refill [facility] - [place] #2 [place] [phone] Will Wei APRN, IP ARCHITECT #[address] [address] Medication Refill Social History Tobacco Use Types [...] documented as of this encounter Care Teams Repair Department Manager Relationship Specialty Start Date End Date Will Wei APRN, ROBERTO #2 [place] [facility] [address] [place] [address] PCP - General Advanced Practice Nurse 10/06/22 Shanti Mittal MD #2 [place] [facility] [address] [place] [address] Consulting Physician Urology 10/03/22 documented as of this encounter
== END 2025-05-12 11:42 | disposition home or self-care (01) ==
PROVIDERS: Emergency Provider Physician Assistant; PCP Family Medicine
DX: K08.89 Other specified disorders of teeth and supporting structures (principal); M51.34 Other intervertebral disc degeneration, thoracic region; I10 Essential (primary) hypertension; K21.9 Gastro-esophageal reflux disease without esophagitis; F32.A Depression, unspecified; F41.9 Anxiety disorder, unspecified; F17.210 Nicotine dependence, cigarettes, uncomplicated; Z87.442 Personal history of urinary calculi; Z79.899 Other long term (current) drug therapy; Z95.828 Presence of other vascular implants and grafts
CPT/HCPCS: 72128; 99284; A9270

== ENCOUNTER 2025-05-20 19:57 | Emergency (ER) | payer OTHER, SELFPAY ==
--- OUTSIDE RECORDS SUMMARY | 2025-05-20 19:59 | XMS_ITS | Encounter Summary ---
Author Organization [facility] Address [address] [place] [address] Phone Care Team Providers Care Line Palletizer Name Role Phone Will Wei APRN, CNP Primary Care Pr ovider Shanti Mittal MD Unavailable [phone] Reason for Visit * Reason Comments Medication Refill Encounter Details Date Type Department Care Team (Late st Contact Info) Description 03/17/2023 Refill [facility] - [facility] - [place] #2 [place] [phone] Will Wei APRN, PET STORE MERCHANDISER #[address] [address] Medication Refill Social History Tobacco Use Types [...] documented as of this encounter Care Teams Line Palletizer Relationship Specialty Start Date End Date Will Wei APRN, ROBERTO #2 [place] [facility] [address] [place] [address] PCP - General Advanced Practice Nurse 10/06/22 Shanti Mittal MD #2 [place] [facility] [address] [place] [address] Consulting Physician Urology 10/03/22 documented as of this encounter
--- OUTSIDE RECORDS SUMMARY | 2025-05-20 19:59 | XMS_ITS | Encounter Summary ---
Author Organization [facility] Address [address] [place] [address] Phone Care Team Providers Care Mill Supervisor Name Role Phone Will Wei APRN, CNP Primary Care Pr ovider Shanti Mittal MD Unavailable [phone] Reason for Visit * Reason Comments Medication Refill Encounter Details Date Type Department Care Team (Late st Contact Info) Description 06/23/2023 Refill [facility] - [facility] Medicine - [place] #2 [place] [phone] Will Wei APRN, PILLING MACHINE OPERATOR #[address] [address] Medication Refill Social History Tobacco Use Types [...] with Citalopram for at least 6 months LOPMENT CONSULTANT documented in this encounter Plan of Treatment Not on file documented as of this encounter Visit Diagnoses Diagnosis Depressive disorder Depressive disorder, not elsewhere classified documented in this encounter Additional Health Concerns Assessment Noted Time PHQ-9 Depression Total Score: 8 01/18/20 19 1:00 PM CDT documented as of this encounter Care Teams Mill Supervisor Relationship Specialty Start Date End Date Will Wei APRN, CNP #2 [facility] [address] [place] [address] PCP - General Advanced Practice Nurse 10/06/22 Shanti Mittal MD #2 [facility] [address] [place] [address] Consulting Physician Urology 10/03/22 documented as of this encounter
--- OUTSIDE RECORDS SUMMARY | 2025-05-20 19:59 | XMS_ITS | Encounter Summary ---
Author Organization [facility] Address [address] [place] [address] Phone Care Team Providers Care Associate Director Financial Aid Name Role Phone Will Wei APRN, CNP Primary Care Pr ovider Shanti Mittal MD Unavailable [phone] Reason for Visit * Reason Comments Medication Refill Encounter Details Date Type Department Care Team (Late st Contact Info) Description 12/26/2023 Refill [facility] - [facility] - [place] #2 [place] [phone] Will Wei APRN, QUALITY CONTROL AUDITOR #[address] [address] Medication Refill Social History Tobacco Use Types [...] Schroeder CMA - 12/26/2023 1:27 PM CDT [employer] message was sent to patient; phone number [...] documented as of this encounter Care Teams Associate Director Financial Aid Relationship Specialty Start Date End Date Will Wei APRN, QUALITY CONTROL AUDITOR #[address] [address] PCP - General Advanced Practice Nurse 10/06/22 Shanti Mittal MD #2 [facility] [address] [place] [address] Consulting Physician Urology 10/03/22 documented as of this encounter
--- OUTSIDE RECORDS SUMMARY | 2025-05-20 19:59 | XMS_ITS | Encounter Summary ---
Author Organization [facility] Address [address] [place] [address] Phone Care Team Providers Care Automobile Inspector Name Role Phone Will Wei APRN, CNP Primary Care Pr ovider Shanti Mittal MD Unavailable [phone] Reason for Visit * Reason Comments Medication Refill Encounter Details Date Type Department Care Team (Late st Contact Info) Description 01/26/2024 Refill [facility] - [facility] Medicine - [place] #2 [place] [phone] Will Wei APRN, WINDOW AND SIDING CRAFTSMAN #[address] [address] Medication Refill Social History Tobacco Use Types [...] note were not included. Will Wei APRN, WINDOW AND SIDING CRAFTSMAN to [facility] 01/21/24 9:04 AM Needs OV * Telephone Encounter - Sharmila Chaudhari RN - 01/26/2024 12:54 PM CDT Pt needs OV. Per RMA 01/22/24: NO ACTIVE PHONE NUMBER IN PATIENT CHART OR ADDRESS [employer] message was sent to patient, but remains unread. documented in this encounter Plan of Treatment Not on file documented as of this encounter Visit Diagnoses Diagnosis Depressive disorder Depressive disorder, not elsewhere classified documented in this encounter Additional Health Concerns Assessment Noted Time PHQ-9 Depression Total Score: 8 01/18/20 19 1:00 PM CDT documented as of this encounter Care Teams Automobile Inspector Relationship Specialty Start Date End Date Will Wei APRN, WINDOW AND SIDING CRAFTSMAN #2 [facility] [address] [place] [address] PCP - General Advanced Practice Nurse 10/06/22 Shanti Mittal MD #2 [facility] [address] [place] [address] Consulting Physician Urology 10/03/22 documented as of this encounter
--- OUTSIDE RECORDS SUMMARY | 2025-05-20 19:59 | XMS_ITS | Clinical Summary ---
Author Organization [facility] Address [address] [place] [address] Care Team Providers Care Interceptor Operator Name Role Phone Cary Meng Unavailable Unavailable Abdulaziz Wooten MD Primary Care Provider [phone] Allergies Active Allergy Reactions Criticality Noted Date [...] (01/28/2020): Added automatically from request for surgery [id number] Gastroesophageal reflux disease without esophagi tis 01/20/2020 Nausea and vomiting 01/20/2020 Renal calculus, right 01/19/2020 Overview (01/19/2020): Added automatically from request for surgery [id number] Chronic migraine without aura 07/13/2016 Overview (09/01/2016): [...] Care Team Description 05/08/2025 [facility] Enrollment [facility] Warm Hand Off Program [address] [place], [place] [phone] Cary Meng 04/30/2025 Documentation [facility] [address] [place], [place] [phone] Cary Meng 04/28/2025 12:27 PM BELT FIXER - 04/28/2025 5:01 PM BELT FIXER Emergency [facility] Emergency Department [address] [place] [address] Barbara Landa MD Polysubstance abuse (Primary Dx) Discharge Disposition: Discharge to home or self care 04/28/2025 Documentation [facility] Warm Hand Off Program [address] [place], [place] [phone] Alberto David RRT from Last 3 Months [...] on file Legal Sex Male 4:22 AM BELT FIXER Gender Identity Not on file Sexual Orientation Not on file Last Filed Vital Signs Vital Sign Reading Time Taken Comments Blood Pressure 146/100 04/28/2025 4:59 PM BELT FIXER Pulse 69 04/28/2025 4:59 PM BELT FIXER Temperature 37.1 C (98.7 F) 04/28/2025 12:40 PM BELT FIXER Respiratory Rate 14 04/28/2025 4:59 PM BELT FIXER Oxygen Saturation 96% 04/28/2025 4:59 PM BELT FIXER Inhaled Oxygen Concentration - - Weight 72.6 kg (160 lb) 04/28/2025 12:40 PM BELT FIXER Height 175.3 cm (5' 9) 04/28/2025 12:40 PM BELT FIXER Body Mass Index 23.63 04/28/2025 12:40 PM BELT FIXER Plan of Treatment Health Maintenance Due Date [...] 12/25/2025, 12/26/2015 Medical Devices Explanted Type Area Video Game Programmer Device Identifier Shelf Expiration Date Model / Serial / Lot Bard Inlay [place] 7fr X 26cm Implanted:Qty: 1 on 01/21/2020 by Hector Martinez MD at [facility] Explanted:Qty: 1 on 03/26/2020 by Raj Hernandez DO at [facility] Right: Ureter [employer] [id number] 08/28/2023 [id number] / / [id number] [employer] Jaison [id number] 6fr 26cm Large Inner Lumen Low Profile Bladder Donny Taper Tip Latex Free - [id number] Implanted:Qty: 1 on 03/26/2020 by Raj Hernandez DO at [facility] Explanted:Qty: 1 on 04/14/2020 by Raj Hernandez DO Right: Ureter [employer] Jaison [id number] 11/03/2021 [id number] / / [id number] Procedures Procedure Name Priority Date/Time Associated Diagnosis Comments CT KUB STONE WO CONTRAST ED Urgent/IP Urgent 04/28/2025 4:02 PM BELT FIXER EGFR STAT 04/28/2025 3:17 PM BELT FIXER DIFFERENTIAL AUTO STAT 04/28/2025 3:1 7 PM BELT FIXER ETHANOL STAT 04/28/2025 3:17 PM BELT FIXER COMPREHENSIVE METABOLIC PANEL STAT 04/28/2025 3:17 PM BELT FIXER CBC WITH AUTO DIFFERENTIAL STAT 04/28/2025 3:17 PM BELT FIXER DRUGS OF ABUSE SCREEN, URINE WITHOUT CONFIRMATION STAT 04/28/2025 1:08 PM BELT FIXER URINALYSIS AND REFLEX TO MICROSCOPIC AND CULTURE STAT 04/28/2025 1:08 PM BELT FIXER from Last 3 Months Results * CT KUB Stone WO Contrast (04/28/2025 4:02 PM BELT FIXER) Anatomical Region Laterality Modality Abdomen N/A Computed Tomogra phy 04/28/2025 4:30 PM BELT FIXER Impressions 04/28/2025 4:30 PM BELT FIXER 1. Kidney stones are seen with no [...] Denis Dey M.D. Narrative 04/28/2025 4:30 PM BELT FIXER EXAMINATION: CT KUB STONE WO CONTRAST HISTORY: [...] inal Result * eGFR (04/28/2025 3:17 PM BELT FIXER) eGFR 77 >=60 mL/min/1. 73 m2 Comment: [...] last reviewed 2021. Blood 04/28/2025 3:17 PM BELT FIXER 04/28/2025 3:27 PM BELT FIXER Barbara Landa MD LAB BLOOD ORDERABLE S Final Result [facility]GELA MORIN VIPER) 1 [facility] Department [place] [place] [address] * Differential, auto (04/28/2025 3:17 PM BELT FIXER) Neutrophil abs 6.25 1.50 - 6.50 K/cumm [...] revised on 2017. Blood 04/28/2025 3:17 PM BELT FIXER 04/28/2025 3:27 PM BELT FIXER us Barbara Landa MD LAB BLOOD ORDERABLE S Final Result Performing Organization Address City/[facility]/ZIP Co de Phone Number [facility] ([place]) 1 [facility] [employer] [place] [place] [address] * CBC with auto differential (04/28/2025 3:17 PM BELT FIXER) WBC 9.78 3.80 - 9.90 K/cumm Hgb [...] [facility] ([place]) Blood 04/28/2025 3:17 PM BELT FIXER 04/28/2025 3:27 PM BELT FIXER us Barbara Landa MD LAB BLOOD ORDERABLE S Final Result [facility] ([place]) 1 [facility] [employer] [place] [address] * Ethanol (04/28/2025 3:17 PM BELT FIXER) Ethanol <10 <=10 mg/dL Comment: Interpretive Data Legal limit of intoxication > or = 80 mg/dL Levels > or = 400 mg/dL are potentially TOXIC. Current interpretive data was last revised on 2018. Blood 04/28/2025 3:17 PM BELT FIXER 04/28/2025 3:27 PM BELT FIXER us Barbara Landa MD LAB BLOOD ORDERABLE S Final Result [facility] ([place]) 1 [facility] [place] [address] * (ABNORMAL) Comprehensive metabolic panel (04/28/2025 3:17 PM BELT FIXER) Sodium 138 135 - 145 mmol/L Potassium, [...] may be affected. Blood 04/28/2025 3:17 PM BELT FIXER 04/28/2025 3:27 PM BELT FIXER us Barbara Landa MD LAB BLOOD ORDERABLE S Final [facility] 1 [facility] [place] [address] * Urinalysis reflex to microscopic and culture Urine (04/28/2025 1:08 PM BELT FIXER) Color, ur Yellow Yellow Clarity, ur Clear [...] tendency for uric acid stone formation. Source: [facility] [employer] Current Interpretive Data was last revised on [...] [facility]A [facility]IN ([place]) Urine 04/28/2025 1:08 PM BELT FIXER 04/28/2025 2:49 PM BELT FIXER Barbara Landa MD LAB MICROBIOLOGY - GENERAL ORDERABLES Final Result [facility] ([place]) 1 [facility] [place] [address] * (ABNORMAL) Drugs of Abuse Screen, Urine without Confirmation (04/28/2025 1:08 PM BELT FIXER) Amphetamine, ur Screen Positive, presumptive (A) CutOff [...] revised on 2017. Urine 04/28/2025 1:08 PM BELT FIXER 04/28/2025 1:08 PM BELT FIXER Narrative [facility] ([place]) - 04/28/2025 1:25 PM BELT FIXER Drug of Abuse screening is performed by immunoassay for medical purposes only. This is not to be used for Pain Management purposes. us Hattie Carmichael MD LAB URINE ORDERABLES Cora riley Result [facility]A [facility] ([place]) 1 [facility] [place] [address] from Last 3 Months Insurance [facility] Advance Directives For more information, please contact: [phone] * Full Code (Latest Code Status on File) Date Activated Date Inactivated Comments 03/26/2020 12:45 PM 03/27/2020 6:43 PM * Full Code Date Activated Date Inactivated Comments 01/21/2020 2:45 AM 01/23/2020 9:41 PM * Full Code Date Activated Date Inactivated Comments 01/20/2020 1:37 AM 01/20/2020 6:01 AM Care Teams Interceptor Operator Relationship Specialty Start Date End Date Abdulaziz Wooten MD [address] [place] [address] [place] [address] PCP - General Family Medicine 11/25/24 Cary Meng Motors Assembler Addiction Medicine 03/07/21
--- OUTSIDE RECORDS SUMMARY | 2025-05-20 19:59 | XMS_ITS | Clinical Summary ---
Author Organization [facility] Address [address] [place] [address] Care Team Providers Care Optomechanical Engineer Name Role Phone Unavailable Primary Care Provider Unavailabl e Source Comments [facility],non-owned Affiliates and Associated Physician Practices is amultiple site organization consisting of ambulatory clinics and hospital sitesin [place], [place], [place] and [place]. This disclosure is being madepursuant to the Care Everywhere program and may not contain all information available regarding this patient. Last updated 18.[facility] Allergies Active Allergy Reactions Criticality Noted Date [...] naloxone HCl (Narcan) 4 MG/0.1ML nasal spray Calera 1 (one) spray into the nose as [...] Pain 25 tablet 3 Active HYDROcodone-artie taminophen (Vidor) 5-325 MG tabletIndicatio ns:Flank pain Take 1 [...] medical care, and heating? 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 Gender Identity Not on file Sexual Orientation Not on file Last Filed Vital Signs Vital Sign Reading Time Taken Comments Blood Pressure 142/94 07/06/2022 12:00 AM HOT SAW HELPER Pulse 64 07/05/2022 8:46 PM HOT SAW HELPER Temperature 37.1 C (98.8 F) 07/05/2022 8:46 PM HOT SAW HELPER Respiratory Rate 22 07/05/2022 8:46 PM HOT SAW HELPER Oxygen Saturation 96% 07/06/2022 12:00 AM HOT SAW HELPER Inhaled Oxygen Concentration - - Weight 74.8 kg (165 lb) 07/05/2022 8:46 PM HOT SAW HELPER Height 175.3 cm (5' 9) 07/05/2022 8:46 PM HOT SAW HELPER Body Mass Index 24.37 07/05/2022 8:46 PM HOT SAW HELPER Plan of Treatment Health Maintenance Due Date [...] this topic Medical Devices Implanted Type Area Maintenance Groundman Device Identifier Shelf Expiration Date Model / Serial / Lot Stent Tria Sft 6x30 Implanted:Qty: 1 on 03/02/2022 by John Mathews MD at [facility] Right: Ureter [employer] 10/18/2024 [id number] / / [id number] Stent Uret 7fr 28cm Pgtl Crv Tpr Tip - [id number] Implanted:Qty: 1 on 07/03/2022 by Cale Trejo MD at [facility] Left: Ureter [employer] 12/03/2022 [id number] / [id number] / [id number] [place] [address] [place] [address] MEDICAID - [place] Advance Directives * Full Code (Latest Code Status on File) Date Activated Date Inactivated Comments 06/26/2022 10:21 PM 06/28/2022 4:13 PM * Full Code Date Activated Date Inactivated Comments 02/28/2022 9:54 PM 03/03/2022 1:17 PM
[2025-05-20 20:08] VITALS: BP 175/112; PULSE 91; RESP 18; TEMP 36.6; O2SAT 98
--- NOTE | 2025-05-21 | ED.DENTAL ---
HPI - Dental/Oral General Chief complaint: Dental/Oral Stated complaint: abscess in throat Time Seen by Provider: 05/20/25 23:30 Source: patient Mode of arrival: ambulatory Limitations: no limitations History of Present Illness HPI Narrative: This is a 50 year old male that presents to the ER for mouth pain. Reports he has been on several antibiotics for dental infection. He is now having sore throat, pain in his mouth. Related Data Home Medications ?Medication ?Instructions ?Recorded ?Confirmed ?Last Taken ?Type amitriptyline 50 mg tablet 50 mg PO ONCE 12/08/19 12/30/19 Unknown History diphenhydramine HCl 25 mg capsule 25 mg PO TID PRN 12/08/19 12/30/19 Unknown History (Allergy Relief (diphenhydramine)) metoclopramide HCl 10 mg tablet 10 mg PO BID PRN 12/08/19 12/30/19 Unknown History (Reglan) topiramate 50 mg tablet 50 mg PO DAILY 12/08/19 12/30/19 Unknown History Allergies Allergy/AdvReac Type Severity Reaction Status Date / Time propoxyphene (From Allergy Severe Swelling Verified 05/12/25 09:29 Darvocet-N) of Lip/Tongue/Throat sulfamethoxazole (From Allergy Unknown burn casey Verified 05/12/25 09:29 Bactrim) on skin trimethoprim (From Bactrim) Allergy Unknown burn casey Verified 05/12/25 09:29 on skin Review of Systems Review of Systems: All systems reviewed & are unremarkable except as noted in HPI and below PMFSH Past Medical History Medical History (Updated 05/21/25 @ 00:01 by Tran Shanks PA-C) Kidney stones Hypertension Hypersomnia Lung mass Shortness of Breath Tobacco abuse Chest mass GERD (gastroesophageal reflux disease) Anxiety Migraines Depression Surgical History Surgical History History of stent insertion of renal artery History of back surgery Family History Family History Mother Diabetes mellitus Lung cancer Grandparent Diabetes mellitus Social History Social History Smoking packs per day: 1 Smoking cigarettes per day: 20.0 Years smoked: 30 Smoking pack-years: 30.00 Smoking status: Current every day smoker Tobacco type: cigarettes Alcohol intake: never Exam Narrative: GENERAL: Well-appearing, well-nourished, and in no acute distress. HEAD: Normocephalic, atraumatic. EYES: EOMI. ENT: Nares clear, no rhinorrhea or epistaxis. Mucous membranes moist. Oropharynx without tonsillar hypertrophy. White patches noted on the tongue, posterior oropharynx. Poor dentition. No focal abscess NECK: Supple. No adenopathy or masses. CHEST: No respiratory distress. HEART: Regular rate EXTREMITIES: Normal range of motion. No edema. SKIN: Warm, dry, no rash. NEURO: No focal deficits. Alert and oriented x3. PSYCH: Normal mood and affect Course Vital Signs Vital signs: Vital Signs Temperature 97.9 F 05/20/25 20:08 Pulse Rate 91 05/20/25 20:08 Respiratory Rate 18 05/20/25 20:08 Blood Pressure 175/112 H 05/20/25 20:08 Pulse Oximetry 98 05/20/25 20:08 Oxygen Delivery Room Air 05/20/25 20:08 Temperature 97.9 F 05/20/25 20:08 Pulse Rate 91 05/20/25 20:08 Respiratory Rate 18 05/20/25 20:08 Blood Pressure 175/112 H 05/20/25 20:08 Pulse Oximetry 98 05/20/25 20:08 Oxygen Delivery Room Air 05/20/25 20:08 [facility] MDM Narrative Medical decision making narrative: Patient presents with findings of thrush. Will be started on miconazole. Instructed on the importance of following up with a dentist for his tooth Differential Diagnosis Differential Diagnosis: Thrush, dentalgia, dental abscess Critical Care Time Critical Care Time Critical Care Time: No Discharge Plan Discharge Clinical Impression: Oral thrush Patient Disposition: Home Condition: Stable Instructions: Oral Candidiasis (ED) Additional Instructions: Return to the Emergency Department if you experience fever >101, increasing swelling and redness of your tooth, or any other symptoms that are concerning to you Tylenol or Ibuprofen as needed for pain. Miconazole buccal tablets as prescribed Follow up with a dentist Patient Language: Upper Sorbian Prescriptions: New miconazole 50 mg muco-adhesive buccal tablet 50 mg buccal QAM 14 Days Qty: 14 0RF No Action ergocalciferol (vitamin D2) 1,250 mcg (50,000 unit) capsule 50,000 unit PO WEEKLY Qty: 20 1RF Rx Instructions: take 1 every week for 8 weeks then switch to 1 monthly thereafter sumatriptan succinate 100 mg tablet 100 mg PO ONCE PRN (Reason: Migraine Headache) Qty: 9 1RF amitriptyline 50 mg tablet 50 mg PO ONCE diphenhydramine HCl [Allergy Relief(diphenhydramin)] 25 mg capsule 25 mg PO TID PRN metoclopramide HCl [Reglan] 10 mg tablet 10 mg PO BID PRN topiramate 50 mg tablet 50 mg PO DAILY naproxen sodium [Flanax (naproxen)] 220 mg tablet 220 mg PO Q12H Qty: 60 0RF clindamycin HCl [Cleocin HCl] 300 mg capsule 300 mg PO Q6H 7 Days Qty: 28 0RF cyclobenzaprine 10 mg tablet 10 mg PO TID PRN (Reason: muscle spasm) Qty: 10 0RF lidocaine 5 % adhesive patch,medicated 1 patch topical DAILY Qty: 15 0RF Rx Instructions: leave on most painful area for up to 12 hrs propranolol 20 mg tablet 20 mg PO Q12H Qty: 30 5RF famotidine 20 mg tablet 40 mg PO BID Qty: 60 3RF citalopram 20 mg tablet 20 mg PO DAILY Qty: 30 0RF Follow-up/Referrals: Paul Saab MD [Primary Care Provider, Family Practice] Stand Alone Forms: Work/School Release IP
[2025-05-21 00:54] VITALS: BP 150/105; PULSE 93; RESP 18; O2SAT 95
== END 2025-05-21 00:58 | disposition home or self-care (01) ==
PROVIDERS: Emergency Provider Physician Assistant; PCP Family Medicine
DX: B37.9 Candidiasis, unspecified (principal); I10 Essential (primary) hypertension; K21.9 Gastro-esophageal reflux disease without esophagitis; F17.210 Nicotine dependence, cigarettes, uncomplicated
CPT/HCPCS: 99283